=== PATIENT | male | born 1965 | race Caucasian/White ===

== ENCOUNTER 2018-03-02 13:11 | Outpatient (CLI) | payer OTHER ==
[2018-03-02 13:26] LABS: #Basophils 0.1 thou/uL (0.0-0.2); #Eosinphils 0.1 thou/uL (0.0-0.7); #Lymphocytes 2.6 thou/uL (1.20-3.40); #Monocytes 0.3 thou/uL (0.11-0.59); #Neutrophils 8.1 thou/uL (1.40-6.50); %Basophils 0.9 % (0.0-1.0); %Eosinophils 0.8 % (0.0-10.0); %Lymphocytes 23.4 % (21.0-51.0); %Monocytes 2.3 % (0.0-10.0); %Neutrophils 72.6 % (42.0-75.0); Hemoglobin 18.1 g/dL (14.0-18.0); Mean Corpuscular HGB CONC 34.3 g/dL (32.0-36.0); Mean Corpuscular Hemoglobin 28.7 pg (27.0-31.0); Mean Corpuscular Volume 83.6 fl (80.0-94.0); Platelet Count 272 thou/uL (130-400); RBC Distribution Width 11.9 % (11.5-14.5); Red Blood Cell (RBC) Count 6.31 mill/uL (4.70-6.10); White Blood Cell (WBC) Count 11.2 thou/uL (4.8-10.8)
[2018-03-02 13:36] LABS: Bilirubin Negative (Negative); Blood, Urine Negative (Negative); Clarity Clear (Clear); Glucose, Urine (Dipstick) 500 mg/dL (Negative); Leukocyte Negative (Negative); Nitrite Negative (Negative); Protein, Urine (Dipstick) 30 mg/dL (Neg-Trace); Urobilinogen 0.2 mg/dL (0.2-1.0); pH, Urine 5.5 (5.0-9.0)
[2018-03-02 13:49] LABS: ALT (SGPT) 25 U/L (8-55); AST (SGOT) 13 U/L (5-34); Albumin 4.7 g/dL (3.5-5.0); Alkaline Phosphatase 101 U/L (40-150); Anion Gap 14 mmol/L (10-20); BUN (Urea Nitrogen) 14 mg/dL (8.4-25.7); Bilirubin, Total 0.5 mg/dL (0.2-1.2); Calc. Creatinine Clearance 0 mL/min (70-130); Calcium 9.9 mg/dL (7.8-10.44); Carbon Dioxide 25 mmol/L (22-29); Cardiac Risk 6.1 (Less than 4.5); Chloride 100 mmol/L (98-107); Cholesterol 195 mg/dl (< 200 Desired); Estimated GFR-MDRD 73; Globulin 3.2 g/dL (2.4-3.5); Glucose 345 mg/dL (70-105); HDL Cholesterol 32 mg/dL (>60 Neg Risk); Potassium 4.2 mmol/L (3.5-5.1); Protein, Total 7.9 g/dL (6.0-8.3); Sodium 135 mmol/L (136-145); Triglycerides 468 mg/dL (Less than 150)
--- NOTE | 2018-03-02 13:49 | RAD ---
LEFT HIP 2 VIEWS: Date: 03/02/18 HISTORY: Left hip pain. FINDINGS/IMPRESSION: Mild degenerative changes are present. No fracture, dislocation, or bone destruction is identified. POS: [facility]
[2018-03-02 13:57] LABS: Bacteria/HPF Rare-Few HPF (None Seen); RBC/HPF None Seen HPF (0-3); Squamous Epithelial 0-3 HPF (0-3); WBC/HPF None Seen HPF (0-3)
== END 2018-03-02 13:12 | disposition home or self-care (01) ==
LOC: SCSRAD 13:11
PROVIDERS: ATTEND Family Medicine
DX: Z00.00 Encounter for general adult medical examination without abnormal findings (principal); E11.9 Type 2 diabetes mellitus without complications; M25.552 Pain in left hip; M16.12 Unilateral primary osteoarthritis, left hip
CPT/HCPCS: 36415; 80053; 80061; 81001; 83036; 85025

== ENCOUNTER 2018-04-10 06:59 | Inpatient (IN) | payer OTHER ==
[2018-04-10] MEDS ORDERED: Ondansetron HCl/PF 4 MG/2 ML Vial ONE (07:16)
[2018-04-10] MEDS ORDERED: Insulin Regular 300 UNITS/3 ML VIAL ONE (07:22)
[2018-04-10] MEDS ORDERED: Promethazine HCl 25 MG/ML VIAL ONE (07:42)
[2018-04-10 07:52] LABS: #Basophils 0.1 thou/uL (0.0-0.2); #Lymphocytes 1.8 thou/uL (1.20-3.40); #Monocytes 0.5 thou/uL (0.11-0.59); #Neutrophils 16.3 thou/uL (1.40-6.50); %Basophils 0.7 % (0.0-1.0); %Eosinophils 0.1 % (0.0-10.0); %Lymphocytes 9.6 % (21.0-51.0); %Monocytes 2.6 % (0.0-10.0); %Neutrophils 87.1 % (42.0-75.0); Hemoglobin 19.1 g/dL (14.0-18.0); Mean Corpuscular HGB CONC 34.9 g/dL (32.0-36.0); Mean Corpuscular Hemoglobin 30.1 pg (27.0-31.0); Mean Corpuscular Volume 86.2 fl (80.0-94.0); Mean Platelet Volume 7.8 fL (7.4-10.4); Platelet Count 324 thou/uL (130-400); RBC Distribution Width 11.8 % (11.5-14.5); Red Blood Cell (RBC) Count 6.36 mill/uL (4.70-6.10); White Blood Cell (WBC) Count 18.8 thou/uL (4.8-10.8)
[2018-04-10 07:52] LABS: Base Excess-Venous -7.1 mmol/L (0 (+/- 2.5)); Bicarbonate (HCO3v) 15.8 mmol/L (1.0-85.0); CO2 Tension (PvCO2) 26.7 mmHg (41.0-51.0); Hemoglobin - Calc 19.6 g/dL (12.0-18.0); Potassium 5.1 mmol/L (3.4-4.7); T. Carbon Dioxide 16.6 mmol/L (1.0-85.0); pH (Venous) 7.378 (7.35-7.45); vO2 Saturation-calc 75.2 % (94-98)
[2018-04-10 08:09] LABS: ALT (SGPT) 15 U/L (8-55); AST (SGOT) 13 U/L (5-34); Albumin 4.4 g/dL (3.5-5.0); Alkaline Phosphatase 94 U/L (40-150); Anion Gap 31 mmol/L (10-20); BUN (Urea Nitrogen) 22 mg/dL (8.4-25.7); Bilirubin, Total 0.8 mg/dL (0.2-1.2); Calc. Creatinine Clearance 0 mL/min (70-130); Calcium 10.2 mg/dL (7.8-10.44); Carbon Dioxide 14 mmol/L (22-29); Chloride 97 mmol/L (98-107); Estimated GFR-MDRD 54; Globulin 3.5 g/dL (2.4-3.5); Glucose 478 mg/dL (70-105); Lipase 23 U/L (8-78); Potassium 5.5 mmol/L (3.5-5.1); Protein, Total 7.9 g/dL (6.0-8.3); Sodium 136 mmol/L (136-145); Troponin I 0.012 ng/mL (< 0.028)
--- NOTE | 2018-04-10 09:22 | RAD ---
CHEST 1 VIEW: HISTORY: Hyperglycemia. Dyspnea. FINDINGS: No comparison. Cardiac silhouette is magnified by projection. Pulmonary vasculature unremarkable. Mediastinum midline with postoperative changes. No lobar consolidation or evidence of pneumothorax. IMPRESSION: No active cardiopulmonary abnormalities are demonstrated. POS: [facility]
[2018-04-10] MEDS ORDERED: Sodium Chloride 0.9% 1,000 ML IV SCH (11:19)
[2018-04-10] MEDS ORDERED: Ondansetron HCl/PF 4 MG/2 ML Vial IVP PRN (11:19)
[2018-04-10] MEDS ORDERED: Ondansetron ODT 4 MG TAB SL PRN (11:19)
[2018-04-10] MEDS ORDERED: HumaLOG 300 UNITS/3 ML VIAL SC PRN (11:19)
[2018-04-10 11:22] LABS: Bilirubin Negative (Negative); Blood, Urine Negative (Negative); Clarity Clear (Clear); Glucose, Urine (Dipstick) 500 mg/dL (Negative); Leukocyte Negative (Negative); Nitrite Negative (Negative); Protein, Urine (Dipstick) Trace mg/dL (Neg-Trace); Urobilinogen 0.2 mg/dL (0.2-1.0)
[2018-04-10 11:46] VITALS: BMI 27.9
[2018-04-10] MEDS ORDERED: hydrALAZINE 20 MG/ML VIAL SLOW IVP PRN (14:19)
[2018-04-10] MEDS ORDERED: Dextrose 50% Abboject 50 ML SYRINGE SLOW IVP PRN (14:19)
[2018-04-10] MEDS ORDERED: Dextrose 5% in Water 1,000 ML IV PRN (14:19)
[2018-04-10] MEDS ORDERED: cloNIDine 0.1 MG TAB PO PRN (14:19)
[2018-04-10] MEDS ORDERED: Acetaminophen 500 MG TAB PO PRN (14:19)
[2018-04-10] MEDS: Promethazine HCl 25 MG/ML VIAL IM/IV PRN (14:52)
[2018-04-10] MEDS ORDERED: Insulin Glargine 20 UNITS in Pre-Filled Syringe SC SCH (15:00)
[2018-04-10] MEDS ORDERED: Insulin Detemir 100 UNITS/ML 20 UNITS in Pre-Filled Syringe 1 EACH SC SCH ×2 (15:00→21:00)
[2018-04-10] MEDS: Sodium Chloride 0.9% 1,000 ML IV SCH ×3 (15:01→22:50)
--- NOTE | 2018-04-10 15:02 | HP ---
DATE OF ADMISSION: 04/10/2018 PRIMARY CARE PHYSICIAN: Dr. Lopez CHIEF COMPLAINT: Nausea, vomiting, and weakness. HISTORY OF PRESENT ILLNESS: This is a 52-year-old male who initially presented to [facility] Emergency Department complaining of nausea, vomiting, elevated blood glucose and dizzin ess. The patient states symptoms began approximately 72 hours prior to this evaluation without prodr omal symptoms. The patient admits to increased thirst, decreased oral intake, nausea, vomiting, and inability to take his regular diabetic medications. History is significant for diabetes mellitus typ e 2, insulin requiring, recently placed on long-acting Lantus. The patient states the long-acting in sulin was initiated approximately 2 months prior to this evaluation and states his glucose has been d ifficult to control. The patient also has a short-acting insulin and states this has more of an effe ct on his glucose than the long-acting preparation. The patient admits to a known history of diabete s mellitus since 1997 with varying amounts of control of his glucose. The patient denied any recent sick contacts, but had some general bodyaches and questionable low-grade temperature several days kael or to the initiation of his symptoms, 72 hours prior to this evaluation. The patient denies any rece nt travel history, dental procedures, surgical intervention, lower extremity wounds, dysuria or diarr hea. The patient admits to extreme thirst, decreased urination, general fatigue and malaise. In the emergency room, patient was noted with glucose greater than 400 and initiated on subcutaneous Humuli n R 10 units as well as 3 liters of normal saline, promethazine and Zofran. The patient states he paredes s some improvement in symptoms, but complains of persistent dizziness. Metabolic screening showed el evated beta hydroxybutyrate, but no specific evidence of acidosis on blood gas evaluation. PAST MEDICAL HISTORY: 1. Diabetes mellitus type 2 diagnosed in 1997, currently insulin requiring. 2. Question of hypertension. PAST SURGICAL HISTORY: Status post quadruple coronary artery bypass grafting. CURRENT MEDICATIONS: 1. Lantus 40 units subcutaneously daily. 2. Humalog 10 units t.i.d. with meals. Complete home medication list is pending. ALLERGIES: No known drug allergies. FAMILY HISTORY: Positive for diabetes mellitus. SOCIAL HISTORY: Resides in [place], [place]. No current alcohol, tobacco or illicit drug use. Functional of all activities of daily living. REVIEW OF SYSTEMS: The following complete review of systems was negative, unless otherwise mentioned in the HPI or below: Constitutional: Weight loss or gain, ability to conduct usual activities. Skin: Rash, itching. Eyes: Double vision, pain. ENT/Mouth: Nose bleeding, neck stiffness, pain, tenderness. Cardiovascular: Palpitations, dyspnea on exertion, orthopnea. Respiratory: Shortness of breath, wheezing, cough, hemoptysis, fever or night sweats. Gastrointestinal: Poor appetite, abdominal pain, heartburn, nausea, vomiting, constipation, or diarr hea. Genitourinary: Urgency, frequency, dysuria, nocturia. Musculoskeletal: Pain, swelling. Neurologic/Psychiatric: Anxiety, depression. Allergy/Immunologic: Skin rash, bleeding tendency. Otherwise negative except as stated per HPI. PHYSICAL EXAMINATION: VITAL SIGNS: On admission blood pressure 180/83, pulse 67, respiratory rate 18, temperature 97.4 deg yovany Fahrenheit, O2 saturation 97% on room air. GENERAL APPEARANCE: This is a 52-year-old male, alert and oriented x3, flushed in mild to moderate distress. HEENT: Pupils are equal, round, and reactive to light and accommodation. Extraocular muscles are in tact. Mild conjunctival injection bilaterally. Nares patent. OP is clear. Oral mucosa dry appeari ng. NECK: Supple, no cervical adenopathy, no thyromegaly, no carotid bruits, no JVD appreciated. Cervic al spine with full active and passive range of motion. No meningeal signs appreciated. CHEST: Lungs are clear to auscultation bilaterally. CARDIOVASCULAR: S1 and S2 without noted rub, murmur or gallop. ABDOMEN: Rounded, soft, nontender, nondistended. Bowel sounds are positive in all four quadrants. There is no hepatosplenomegaly, no abdominal bruits, no rebound or guarding appreciated. EXTREMITIES: Warm and dry with poor turgor. Pulses are palpable distally at the dorsalis pedis, pos terior tibial, and popliteal arteries bilaterally. Capillary refill less than 2 seconds. NEUROLOGIC: Cranial nerves II-XII are grossly intact. No focal or lateralizing signs appreciated. PERTINENT LABORATORY DATA AND X-RAY FINDINGS: Sodium 136, potassium 5.5, chloride 97, CO2 of 14, ani on gap of 31, BUN 22, creatinine 1.39, estimated GFR 54, glucose 478, calcium 10.2. LFTs within norm al limits. Albumin 4.4, lipase 23. CBC showed white blood cell count of 18.8, hemoglobin 19, hemato crit 55, platelet count 324 with 87% neutrophils. Venous blood gas dated 04/10/2018 showed pH of 7.3 8, pCO2 of 27, pO2 of 40. Urinalysis shows a specific gravity of 1.020, positive glucose and ketones . Beta hydroxybutyrate level 7.04 on 04/10/2018. Portable chest x-ray dated 04/10/2018 showed no ac tejon cardiopulmonary process. EKG dated 04/10/2018 by my interpretation shows a sinus mechanism with heart rate in the 80s. Normal R-wave progression noted in the precordial leads. Incomplete right bu ndle branch block pattern noted. Normal axis. No acute ST-T wave changes appreciated. ASSESSMENT AND PLAN: 1. Hyperglycemia. Suspect multifactorial in conjunction with poorly controlled diabetes mellitus ty pe 2. We will continue aggressive insulin sliding scale with Humalog. Serial Accu-Cheks q.2 hours. Start Levemir 20 units subcutaneously b.i.d. Check A1c level in the a.m. 2. Nausea and vomiting. Multifactorial including: A. Continue antiemetics with Phenergan 25 mg IV every 6 hours p.r.n. Intravenous normal saline at 2 50 mL per hour. Clear liquids as tolerated. 3. Dehydration, moderate to severe. Continue aggressive IV fluid hydration and monitor clinical res ponse. 4. Acute kidney injury. Avoid nephrotoxic agents and contrast media. Serial creatinine monitoring. 5. Hyperkalemia. Continue aggressive IV fluid hydration. Serial potassium monitoring. 6. Diabetes mellitus type 2, insulin requiring. Check A1c level in the a.m. Insulin sliding scale for reflexive coverage. Consider dietitian consult. 7. Prophylaxis. Sequential compression devices while in bed. Pepcid 20 mg IV q.12 hours. 8. Code status is FULL. Surrogate medical decision maker is patient's father.
[2018-04-10] MEDS: HumaLOG 300 UNITS/3 ML VIAL SC PRN ×2 (17:58→21:29)
[2018-04-10] MEDS: Famotidine/PF 20 mg/2ml Vial SLOW IVP SCH (21:11)
[2018-04-10] MEDS: Insulin Glargine 20 UNITS in Pre-Filled Syringe SC SCH (21:24)
[2018-04-11] MEDS: Sodium Chloride 0.9% 1,000 ML IV SCH ×4 (02:41→20:23)
[2018-04-11 04:22] LABS: Hemoglobin A1c 10.9 % (4.0-6.0)
[2018-04-11 04:37] LABS: ALT (SGPT) 11 U/L (8-55); AST (SGOT) 9 U/L (5-34); Albumin 3.3 g/dL (3.5-5.0); Alkaline Phosphatase 68 U/L (40-150); Anion Gap 12 mmol/L (10-20); BUN (Urea Nitrogen) 14 mg/dL (8.4-25.7); Bilirubin, Total 0.7 mg/dL (0.2-1.2); Calc. Creatinine Clearance 146 mL/min (70-130); Calcium 8.4 mg/dL (7.8-10.44); Carbon Dioxide 21 mmol/L (22-29); Chloride 106 mmol/L (98-107); Estimated GFR-MDRD Greater than 90; Globulin 2.3 g/dL (2.4-3.5); Glucose 188 mg/dL (70-105); Potassium 3.7 mmol/L (3.5-5.1); Protein, Total 5.6 g/dL (6.0-8.3); Sodium 135 mmol/L (136-145)
[2018-04-11 04:46] LABS: Band 1 % (5-11); Eosinophils 1 % (0-10); Lymphocytes 13 % (21-51); MDiff Complete? YES; Mean Corpuscular Hemoglobin 29.9 pg (27.0-31.0); Mean Platelet Volume 7.7 fL (7.4-10.4); Monocytes 6 % (0-10); Neutrophil 77 % (42-75); Platelet Count 279 thou/uL (130-400); RBC Distribution Width 12.3 % (11.5-14.5); Reactive Lymphocytes 2 % (0-10); Red Blood Cell (RBC) Count 5.34 mill/uL (4.70-6.10); White Blood Cell (WBC) Count 15.1 thou/uL (4.8-10.8)
[2018-04-11] MEDS: Famotidine/PF 20 mg/2ml Vial SLOW IVP SCH (09:33)
[2018-04-11] MEDS: Insulin Glargine 20 UNITS in Pre-Filled Syringe SC SCH ×2 (09:34→20:21)
[2018-04-11] MEDS: Promethazine HCl 25 MG/ML VIAL IM/IV PRN (11:15)
[2018-04-11] MEDS: HumaLOG 300 UNITS/3 ML VIAL SC PRN ×2 (11:55→17:53)
--- NOTE | 2018-04-11 15:34 | MRI ---
NONCONTRAST ENHANCED MRI IMAGES OF THE BRAIN: History: 62-year-old with dizziness, double vision. FINDINGS: Images demonstrate multiple areas of increased T2 signal in the right and left cerebellar hemispheres , more prominent on the right than the left. This is compatible with multiple areas of acute infarcti on in the cerebellum. A small right posterior medullary area of infarction also seen. Normal flow voids seen in the right and left vertebral artery and basilar as well as the CLAYTON and MCA vessels. Normal flow voids seen in the right and left internal carotid arteries. IMPRESSION: 1. Multiple acute PICA distribution areas of infarctions, more prominent on the right than on the lef t. 2. Small right posterior medullary area of acute infarction. Findings compatible with posterior circu lation distribution areas of infarction. Correlate with evaluation of possible cardiac source as well as vertebral sources for possible emboli. POS: [facility]
[2018-04-11] MEDS ORDERED: Aspirin 325 mg Enteric Coated Tablet PO SCH (16:15)
--- NOTE | 2018-04-11 17:20 | PDOC.PN ---
- Subjective Encounter Start Date: 04/11/18 Encounter Start Time: 13:00 Subjective: pt up in bed still complains of dizziness and double vision - Objective Resuscitation Status: Resuscitation Status FULL:Full Resuscitation Vital Signs & Weight: Vital Signs (12 hours) Temp Pulse Resp BP Pulse Ox 04/11/18 16:36 98.9 F 69 18 178/82 H 96 04/11/18 11:30 98.5 F 61 16 154/83 H 95 04/11/18 08:00 98.5 F 75 18 97 04/11/18 07:43 98.5 F 75 18 122/69 97 Weight Admit Weight 200 lb 3 oz Weight 200 lb 3 oz I&O: 04/10/18 04/11/18 04/12/18 06:59 06:59 06:59 Intake Total 3620 180 Balance 3620 180 Result Diagrams: 04/11/18 03:56 04/11/18 03:56 Additional Labs: Accuchecks 04/11/18 04/11/18 04/11/18 16:38 11:34 07:46 POC Glucose 170 H 189 H 164 H 04/11/18 04/10/18 04/10/18 02:51 23:43 20:40 POC Glucose 186 H 185 H 245 H 04/10/18 04/10/18 17:12 11:25 POC Glucose 315 H 333 H Phys Exam - Physical Examination HEENT: PERRLA, moist MMs, sclera anicteric, TM's clear, oral pharynx no lesions , 2+ tonsils Neck: no nodes, no JVD, supple, full ROM Respiratory: no wheezing, no rales, no rhonchi, wheezing present, clear to auscultation bilateral Cardiovascular: RRR, no significant murmur, no rub, gallop, irregular Gastrointestinal: soft, non-tender, no distention, positive bowel sounds Musculoskeletal: no edema, pulses present, edema present Neurological: non-focal finger to nose off on right and left, no pronater drift noted, did not walk patient Psychiatric: normal affect, A&O x 3 Skin: no rash, normal turgor, cap refill <2 seconds Dx/Plan - Plan 1) cerebellum stroke 2) diabetes type 2 3) CAD s/p cabg plan: MRI indicates multiple areas of stroke in his cerebellum, will consult neurology, echo, transfer pt to stroke unit and will monitor on tele. will also check her carotid. pt's hbg alc is 10 most likely pt is not compliant with his meds. He has had a bypass and states he is not on any meds. will start pt on asa /statin/lisinopril for now. * . Review of Systems - Review of Systems Eyes: negative: Pain, Vision Change, Conjunctivae Inflammation, Eyelid Inflammation, Redness, Other ENT: negative: Ear Pain, Ear Discharge, Nose Pain, Nose Discharge, Nose Congestion, Mouth Pain, Mouth Swelling, Throat Pain, Throat Swelling, Other Respiratory: negative: Cough, Dry, Shortness of Breath, Hemoptysis, SOB with Excertion, Pleuritic Pain, Sputum, Wheezing Cardiovascular: negative: chest pain, palpitations, orthopnea, paroxysmal nocturnal dyspnea, edema, light headedness, other Gastrointestinal: negative: Nausea, Vomiting, Abdominal Pain, Diarrhea, Constipation, Melena, Hematochezia, Other Neurological: Other (double vision) - Medications/Allergies Allergies/Adverse Reactions: Allergies Allergy/AdvReac Type Severity Reaction Status Date / Time No Known Allergies Allergy Unverified 04/10/18 11:18 Medications: Current Medications Acetaminophen (Tylenol) 1,000 mg PO Q6H PRN PRN Reason: Headache/Fever or Mild Pain Aspirin (Ecotrin) 325 mg PO DAILY ON LICENSE OF [facility] Aspirin (Ecotrin) 325 mg PO NOW ON LICENSE OF [facility] Stop: 04/11/18 18:15 Atorvastatin Calcium (Lipitor) 40 mg PO HS ON LICENSE OF [facility] Clonidine (Catapres) 0.1 mg PO Q4H PRN PRN Reason: Systolic BP > 180 Dextrose/Water (Dextrose 50%) 25 gm SLOW IVP PRN PRN PRN Reason: Hypoglycemia Enoxaparin Sodium (Lovenox) 40 mg SC 0900 ON LICENSE OF [facility] Famotidine (Pepcid) 20 mg SLOW IVP Q12HR ON LICENSE OF [facility] Last Admin: 04/11/18 09:33 Dose: 20 mg Glucagon (Glucagon) 1 mg IM PRN PRN PRN Reason: Hypoglycemia Hydralazine HCl (Apresoline) 10 mg SLOW IVP Q4H PRN PRN Reason: Systolic BP > 180 Dextrose/Water (D5w) 1,000 mls @ 0 mls/hr IV .Q0M PRN; As Directed PRN Reason: Hypoglycemia Sodium Chloride (Normal Saline 0.9%) 1,000 mls @ 50 mls/hr IV .Q20H [facility] Last Admin: 04/11/18 11:11 Dose: 1,000 mls Insulin Glargine 20 units/ (Miscellaneous Medication) 0.2 mls @ 0 mls/hr SC BID [facility] Last Admin: 04/11/18 09:34 Dose: 0.2 mls Insulin Human Lispro (Humalog) 0 units SC .AGGRESSIVE SLIDING PRN PRN Reason: Aggressive Correctional Scale Last Admin: 04/11/18 11:55 Dose: 3 unit Insulin Human Lispro (Humalog) 0 units SC .BEDTIME SLIDING SC PRN PRN Reason: Bedtime Correctional Scale Last Admin: 04/10/18 21:29 Dose: 2 unit Lisinopril (Zestril) 10 mg PO DAILY ON LICENSE OF [facility] Promethazine HCl (Phenergan) 25 mg IM/IV Q6H PRN PRN Reason: Nausea/Vomiting Last Admin: 04/11/18 11:15 Dose: 25 mg Sodium Chloride (Flush - Normal Saline) 10 ml IVF Q12HR ON LICENSE OF [facility] Sodium Chloride (Flush - Normal Saline) 10 ml IVF PRN PRN PRN Reason: Saline Flush
[2018-04-11] MEDS: Famotidine 20 MG TAB PO SCH (20:20)
--- NOTE | 2018-04-11 20:42 | CON ---
DATE OF CONSULTATION: 04/11/2018 CONSULTING PHYSICIAN: Hospitalist Service. IMPRESSION: 1. Posterior circulation infarcts suggesting the possibility of an embolic event. 2. Diabetes. 3. History of heart disease. 4. Aspirin failure. PLAN: 1. Add Plavix. 2. Carotid ultrasound. 3. Echocardiogram. 4. Zofran for nausea. Mr. Moraes is a 52-year-old man who awoke with acute onset of vertigo. This has been associated wit h some nausea and vomiting. There has been some minimal headache. He denies any difficulty swallowi ng. He has some perioral numbness. He has not noticed any lateralized weakness or numbness of the e xtremities. He came in for further evaluation. His MRI of the brain revealed areas of infarction in volving both occipital regions as well as the medulla. His labwork otherwise was unremarkable other than his hyperglycemia. He denies any tobacco use. PAST MEDICAL HISTORY: As listed above. ALLERGIES: None reported. SOCIAL HISTORY: Unremarkable. FAMILY HISTORY: Unremarkable. REVIEW OF SYSTEMS: Otherwise, negative for any chest pain or shortness of breath. PHYSICAL EXAMINATION: GENERAL: He is a reasonably healthy appearing middle-aged man, lying in bed in minimal distress. HEENT: Pupils equal and reactive. Conjunctivae clear. Oropharynx clear. NECK: Supple. EXTREMITIES: No cyanosis, clubbing or edema. NEUROLOGIC: He was alert and cooperative. His speech is fluent and clear. Cranial nerve exam was n otable for upbeating nystagmus which was worse in right gaze. His facial sensation was subjectively decreased on the left as compared to the right. Motor exam showed good antigravity strength in all e xtremities. Cerebellar testing showed dysmetria with [id number] testing on the right. Plantar r esponses were downgoing. Gait was not tested. SUMMARY: A middle-aged man with acute onset of vertigo, vision distortion some dysmetria on the righ t with findings of multiple areas of infarct on his MRI. We will add Plavix and continue his workup.
[2018-04-11] MEDS ORDERED: Atorvastatin Calcium 40 MG TAB PO SCH (21:00)
[2018-04-12] MEDS: Promethazine HCl 25 MG/ML VIAL IM/IV PRN (08:21)
[2018-04-12 09:00] LABS: Cardiac Risk 4.7 (Less than 4.5)
[2018-04-12] MEDS: Famotidine 20 MG TAB PO SCH ×2 (09:49→22:19)
[2018-04-12] MEDS: Lisinopril 10 MG TAB PO SCH (09:49)
[2018-04-12] MEDS: Aspirin 325 mg Enteric Coated Tablet PO SCH (09:50)
[2018-04-12] MEDS: Clopidogrel Bisulfate 75 MG TAB PO SCH (09:50)
[2018-04-12] MEDS: Enoxaparin Sodium 40 MG/0.4 ML SYRINGE SC SCH (10:04)
[2018-04-12] MEDS: Sodium Chloride 0.9% 1,000 ML IV SCH (10:04)
[2018-04-12] MEDS: Insulin Glargine 20 UNITS in Pre-Filled Syringe SC SCH ×2 (10:04→22:19)
[2018-04-12] MEDS: HumaLOG 300 UNITS/3 ML VIAL SC PRN ×2 (11:55→17:00)
--- NOTE | 2018-04-12 12:04 | CT ---
CTA HEAD UTILIZING IV CONTRAST AND 3D REFORMATTED IMAGING: CTA NECK UTILIZING IV CONTRAST AND 3D REFORMATTED IMAGING: INDICATION: History of acute infarctions involving the PICA distribution of the brain. There are multiple cerebe llar and the medulla oblongata infarction. FINDINGS: NECK: There is emphysematous change involving both lung apices. There is partial visualized of post CABG change. There are mild vascular calcifications involving the aortic arch. There is a bovine a rch configuration. The brachiocephalic artery appears widely patent. The right subclavian artery ap pears widely patent. The right common carotid artery is widely patent. The right carotid bulb appea rs patent. The cervical ICA on the right appears patent. The left common carotid artery origin and course is widely patent. The left carotid bulb demonstrate s some mild vascular calcifications but appears patent. The cervical course of the left ICA is fully patent. The right vertebral artery course is fully patent throughout the cervical region. The left vertebral artery origin and course is fully patent throughout the cervical region. The left subclavian artery is fully patent. The thyroid, submandibular, and parotid glands appear widely patent. The visualized aerodigestive tr act appears within normal limits. There is some mild scattered change of the cervical spine. No acute osseous abnormality is evident. HEAD: No hemodynamically significant stenosis, occlusion, or aneurysmal formation is evident involvi ng the great vessels of the brain. There are subacute infarctions involving the cerebellar hemispher es bilaterally, as well as the right posterolateral aspect of the medulla. No abnormal region of enh ancement is demonstrated. The skull is intact. IMPRESSION: 1. No hemodynamically significant stenosis seen involving the major neck arterial structures. 2. No hemodynamically significant stenosis, occlusion, or aneurysmal formation seen involving the in tracranial arterial structures. 3. Bilateral cerebellar hemisphere and right posterolateral medulla oblongata subacute infarcts. POS: [facility]
[2018-04-12] MEDS ORDERED: Iopamidol 370 76% 100 ML VIAL ONE (13:05)
--- NOTE | 2018-04-12 14:13 | PDOC.PN ---
- Objective Resuscitation Status: Resuscitation Status FULL:Full Resuscitation Vital Signs & Weight: Vital Signs (12 hours) Temp Pulse Resp BP Pulse Ox 04/12/18 12:15 98.4 F 82 18 190/96 H 99 04/12/18 08:00 98.1 F 67 16 181/86 H 96 04/12/18 03:42 98.0 F 68 20 148/86 H 95 Weight Admit Weight 200 lb 3 oz Weight 200 lb 3 oz I&O: 04/11/18 04/12/18 04/13/18 06:59 06:59 06:59 Intake Total 3620 620 Output Total 400 Balance 3620 220 Result Diagrams: 04/11/18 03:56 04/11/18 03:56 Additional Labs: Accuchecks 04/12/18 04/12/18 04/11/18 11:50 04:51 19:57 POC Glucose 278 H 157 H 181 H 04/11/18 16:38 POC Glucose 170 H Phys Exam - Physical Examination HEENT: PERRLA, moist MMs, sclera anicteric, TM's clear, oral pharynx no lesions , 2+ tonsils Neck: no nodes, no JVD, supple, full ROM Respiratory: no wheezing, no rales, no rhonchi, wheezing present, clear to auscultation bilateral Cardiovascular: RRR, no significant murmur, no rub, gallop, irregular Gastrointestinal: soft, non-tender, no distention, positive bowel sounds Musculoskeletal: no edema, pulses present, edema present right hand finger to nose is off, pt's gait is unsteady, 5/5 upper lower ext Dx/Plan - Plan 1) cerebellum stroke 2) diabetes type 2 3) CAD s/p cabg plan: MRI indicates multiple areas of stroke in his cerebellum, will consult neurology, echo, transfer pt to stroke unit and will monitor on tele. will also check her carotid. pt's hbg alc is 10 most likely pt is not compliant with his meds. He has had a bypass and states he is not on any meds. will start pt on asa /statin/lisinopril for now. 04/12 plavix added, will get cta neck and head. will consult cardiology for TONY. pt evaluated pt, will need inpatient rehab. * . Review of Systems - Review of Systems Eyes: negative: Pain, Vision Change, Conjunctivae Inflammation, Eyelid Inflammation, Redness, Other ENT: negative: Ear Pain, Ear Discharge, Nose Pain, Nose Discharge, Nose Congestion, Mouth Pain, Mouth Swelling, Throat Pain, Throat Swelling, Other Respiratory: negative: Cough, Dry, Shortness of Breath, Hemoptysis, SOB with Excertion, Pleuritic Pain, Sputum, Wheezing Cardiovascular: negative: chest pain, palpitations, orthopnea, paroxysmal nocturnal dyspnea, edema, light headedness, other Gastrointestinal: negative: Nausea, Vomiting, Abdominal Pain, Diarrhea, Constipation, Melena, Hematochezia, Other Genitourinary: negative: Dysuria, Frequency, Incontinence, Hematuria, Retention , Other Musculoskeletal: negative: Neck Pain, Shoulder Pain, Arm Pain, Back Pain, Hand Pain, Leg Pain, Foot Pain, Other Other: double vision - Medications/Allergies Allergies/Adverse Reactions: Allergies Allergy/AdvReac Type Severity Reaction Status Date / Time No Known Allergies Allergy Unverified 04/10/18 11:18 Medications: Current Medications Acetaminophen (Tylenol) 1,000 mg PO Q6H PRN PRN Reason: Headache/Fever or Mild Pain Last Admin: 04/11/18 23:07 Dose: 1,000 mg Aspirin (Ecotrin) 325 mg PO DAILY [facility] Last Admin: 04/12/18 09:50 Dose: 325 mg Atorvastatin Calcium (Lipitor) 40 mg PO HS [facility] Last Admin: 04/11/18 20:20 Dose: 40 mg Clonidine (Catapres) 0.1 mg PO Q4H PRN PRN Reason: Systolic BP > 180 Last Admin: 04/12/18 12:09 Dose: 0.1 mg Clopidogrel Bisulfate (Plavix) 75 mg PO DAILY [facility] Last Admin: 04/12/18 09:50 Dose: 75 mg Dextrose/Water (Dextrose 50%) 25 gm SLOW IVP PRN PRN PRN Reason: Hypoglycemia Enoxaparin Sodium (Lovenox) 40 mg SC 0900 [facility] Last Admin: 04/12/18 10:04 Dose: 40 mg Famotidine (Pepcid) 20 mg PO BID [facility] Last Admin: 04/12/18 09:49 Dose: 20 mg Glucagon (Glucagon) 1 mg IM PRN PRN PRN Reason: Hypoglycemia Hydralazine HCl (Apresoline) 10 mg SLOW IVP Q4H PRN PRN Reason: Systolic BP > 180 Dextrose/Water (D5w) 1,000 mls @ 0 mls/hr IV .Q0M PRN; As Directed PRN Reason: Hypoglycemia Sodium Chloride (Normal Saline 0.9%) 1,000 mls @ 50 mls/hr IV .Q20H [facility] Last Admin: 04/12/18 10:04 Dose: 1,000 mls Insulin Glargine 20 units/ (Miscellaneous Medication) 0.2 mls @ 0 mls/hr SC BID [facility] Last Admin: 04/12/18 10:04 Dose: 0.2 mls Insulin Human Lispro (Humalog) 0 units SC .AGGRESSIVE SLIDING PRN PRN Reason: Aggressive Correctional Scale Last Admin: 04/12/18 11:55 Dose: 10 unit Insulin Human Lispro (Humalog) 0 units SC .BEDTIME SLIDING SC PRN PRN Reason: Bedtime Correctional Scale Last Admin: 04/10/18 21:29 Dose: 2 unit Lisinopril (Zestril) 10 mg PO DAILY [facility] Last Admin: 04/12/18 09:49 Dose: 10 mg Promethazine HCl (Phenergan) 25 mg IM/IV Q6H PRN PRN Reason: Nausea/Vomiting Last Admin: 04/12/18 08:21 Dose: 25 mg Sodium Chloride (Flush - Normal Saline) 10 ml IVF Q12HR [facility] Last Admin: 04/12/18 10:04 Dose: 10 ml Sodium Chloride (Flush - Normal Saline) 10 ml IVF PRN PRN PRN Reason: Saline Flush
[2018-04-12 17:24] LABS: Amphetamine Not Detected (NotDetected); Barbiturates Screen Not Detected (NotDetected); Benzodiazepine Screen Not Detected (NotDetected); Cocaine Metabolite Screen Not Detected (NotDetected); Medtox Control Line Valid? VALID (VALID); Medtox Reader # READER 4; Methadone Not Detected (NotDetected); Methamphetamine Not Detected (NotDetected); Opiate Screen Not Detected (NotDetected); Oxycodone Screen Not Detected (NotDetected); Phencyclidine (PCP) Not Detected (NotDetected); THC/Cannabinoid Screen Detected (NotDetected); Tricyclic Screen Not Detected (NotDetected)
--- NOTE | 2018-04-12 18:16 | CON ---
DATE OF CONSULTATION: 04/12/2018 HISTORY OF PRESENT ILLNESS: Anshu Moraes is a 52-year-old white male with previous history of myocardial infarction and CABG. On 04/08/2018, he began to have onset of intense nausea, vomiting, and a spinning feeling. Ultimately he went to the emergency room on 04/10/2018 at [facility]. He was given numerous doses of Phenergan and transferred. He denied any chest discomfort or shortness of breath. He does take aspirin 81 mg at home. He has had an MRI, which revealed multiple acute areas of infarction, more prominent in the right than the left. It is felt that this may have been embolic in nature. Cardiology consultation was requested for possible transesophageal echo. PAST MEDICAL HISTORY: Remarkable for myocardial infarction approximately 5 years ago. He states he had 3 stents placed while living in [place]. One year later, this apparently restenosed and he underwent CABG x4. He denies any chest discomfort or shortness of breath since his CABG. He denies any history of any arrhythmias with any of his cardiac problems. MEDICATIONS: Duloxetine 30 mg b.i.d., lisinopril 5 daily, atorvastatin 10 mg daily, and aspirin 81 mg daily. ALLERGIES: None. OPERATIONS: CABG. SOCIAL HISTORY: Smoked 2-1/2 packs per day for 30 years, but stopped at the time of his myocardial infarction. He continues to use E-cigarettes. He occasionally has alcohol. 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 FAMILY HISTORY: Mother had mitral valve replacement; however, does not sound as if anybody has had coronary artery disease in the immediate family. REVIEW OF SYSTEMS: Twelve point review of systems unremarkable except as noted above. PHYSICAL EXAMINATION: VITAL SIGNS: Blood pressure 190/96, pulse of 82. HEENT: PERRL. NECK: Supple. CHEST: Clear. CARDIAC: S1, S2 normal, without any S3, S4 or murmurs. Carotid upstroke is normal without bruits. ABDOMEN: Normal bowel sounds without tenderness, organomegaly or masses. EXTREMITIES: Revealed no clubbing, cyanosis or edema. NEUROLOGIC: Grossly intact. SKIN: Warm and dry. LABORATORY DATA: I do not see an EKG on the chart, one will be ordered. MRI findings as noted above. CT angiogram of the head reveals no significant stenosis of the major neck arteries and no significant intracranial abnormalities or aneurysmal formation. There are bilateral cerebellar hemisphere and right posterolateral medulla oblongata subacute infarcts. Hemoglobin 16.0, hematocrit 47.0. White count 15,100, platelets 279,000. Cholesterol 127, triglycerides 126, HDL 27, LDL 75. Sodium 135, potassium 3.7, chloride 106, carbon dioxide 21, BUN 14, creatinine 0.76. Liver function tests are normal. Cardiac enzymes, one set is normal. IMPRESSION: 1. Cerebellar infarction with intense nausea, vomiting, or vertigo. 2. Coronary artery disease, status post myocardial infarction followed by placement of 3 stents while living in [place]. One year later, he apparently had restenosis, underwent CABG x4 also in [place]. 3. Hypertension. 4. Diabetes. 5. Hyperlipidemia. 6. Former smoker, although he continues to use E-cigarettes. PLAN: Transesophageal echo will be arranged. Also, a transthoracic echo will be performed. EKG will be ordered. His LDL was 75 and I will increase his atorvastatin up to 20 mg daily from the 10 mg a day that he is taking at home. MTDD
[2018-04-12] MEDS ORDERED: Ondansetron ODT 8 MG TAB PO PRN (21:55)
[2018-04-12] MEDS: Atorvastatin Calcium 20 MG TAB PO SCH (22:18)
[2018-04-13] MEDS: HumaLOG 300 UNITS/3 ML VIAL SC PRN ×2 (05:34→17:28)
[2018-04-13] MEDS: Famotidine 20 MG TAB PO SCH ×2 (08:34→21:29)
[2018-04-13] MEDS: Clopidogrel Bisulfate 75 MG TAB PO SCH ×2 (08:34→08:36)
[2018-04-13] MEDS: Lisinopril 10 MG TAB PO SCH ×2 (08:34→08:36)
[2018-04-13] MEDS: Enoxaparin Sodium 40 MG/0.4 ML SYRINGE SC SCH (08:37)
[2018-04-13] MEDS: Aspirin 325 mg Enteric Coated Tablet PO SCH (08:37)
[2018-04-13] MEDS: Meclizine HCl 12.5 MG TAB PO PRN ×2 (08:39→21:29)
[2018-04-13] MEDS: HumaLOG 300 UNITS/3 ML VIAL SC SCH ×3 (09:33→21:29)
[2018-04-13] MEDS: Insulin Glargine 25 UNITS in Pre-Filled Syringe 1 EACH SC SCH ×2 (09:34→21:29)
[2018-04-13] MEDS ORDERED: PROPOFOL 200 MG/20 ML VIAL ONE (09:53)
[2018-04-13] MEDS: Sodium Chloride 0.9% 1,000 ML IV SCH (11:56)
--- NOTE | 2018-04-13 14:01 | PDOC.PN ---
- Subjective Encounter Start Date: 04/13/18 Encounter Start Time: 10:30 Subjective: pt up in bed still has double vision - Objective Resuscitation Status: Resuscitation Status FULL:Full Resuscitation Vital Signs & Weight: Vital Signs (12 hours) Temp Pulse Pulse Pulse Resp BP BP 04/13/18 11:49 97.8 F 71 16 04/13/18 11:13 79 75 175/97 H 04/13/18 08:36 136/82 04/13/18 08:34 136/82 04/13/18 08:00 98.3 F 84 16 04/13/18 03:25 98.1 F 71 16 BP BP Pulse Ox 04/13/18 11:49 175/97 H 97 04/13/18 11:13 133/81 04/13/18 08:36 04/13/18 08:34 04/13/18 08:00 136/82 97 04/13/18 03:25 144/82 H 97 Weight Admit Weight 200 lb 3 oz Weight 200 lb 3 oz I&O: 04/12/18 04/13/18 04/14/18 06:59 06:59 06:59 Intake Total 620 450 Output Total 400 1145 Balance 220 -695 Result Diagrams: 04/11/18 03:56 04/11/18 03:56 Additional Labs: Accuchecks 04/13/18 04/13/18 04/12/18 11:58 05:33 21:23 POC Glucose 149 H 268 H 290 H 04/12/18 16:52 POC Glucose 237 H Phys Exam - Physical Examination HEENT: PERRLA, moist MMs, sclera anicteric, TM's clear, oral pharynx no lesions , 2+ tonsils Neck: no nodes, no JVD, supple, full ROM Respiratory: no wheezing, no rales, no rhonchi, wheezing present, clear to auscultation bilateral Cardiovascular: RRR, no significant murmur, no rub, gallop, irregular Gastrointestinal: soft, non-tender, no distention, positive bowel sounds finger to nose of the right hand is off, unsteady gait Dx/Plan - Plan 1) cerebellum stroke 2) diabetes type 2 3) CAD s/p cabg 4) htn plan: MRI indicates multiple areas of stroke in his cerebellum, will consult neurology, echo, transfer pt to stroke unit and will monitor on tele. will also check her carotid. pt's hbg alc is 10 most likely pt is not compliant with his meds. He has had a bypass and states he is not on any meds. will start pt on asa /statin/lisinopril for now. 04/12 plavix added, will get cta neck and head. will consult cardiology for TONY. pt evaluated pt, will need inpatient rehab. 04/13 insulin dose adjusted, tid insulin added. will also increase pt's lisinopril to 20mg bid. spoke with Dr Gaxiola about pt's double vision. Recommended eye patch and his double vision will improve. pt had TONY today per nursing staff normal. will wait for official report. * . * . Review of Systems - Review of Systems Eyes: negative: Pain, Vision Change, Conjunctivae Inflammation, Eyelid Inflammation, Redness, Other ENT: negative: Ear Pain, Ear Discharge, Nose Pain, Nose Discharge, Nose Congestion, Mouth Pain, Mouth Swelling, Throat Pain, Throat Swelling, Other Respiratory: negative: Cough, Dry, Shortness of Breath, Hemoptysis, SOB with Excertion, Pleuritic Pain, Sputum, Wheezing Cardiovascular: negative: chest pain, palpitations, orthopnea, paroxysmal nocturnal dyspnea, edema, light headedness, other Gastrointestinal: negative: Nausea, Vomiting, Abdominal Pain, Diarrhea, Constipation, Melena, Hematochezia, Other Genitourinary: negative: Dysuria, Frequency, Incontinence, Hematuria, Retention , Other - Medications/Allergies Allergies/Adverse Reactions: Allergies Allergy/AdvReac Type Severity Reaction Status Date / Time No Known Allergies Allergy Unverified 04/10/18 11:18 Medications: Current Medications Acetaminophen (Tylenol) 1,000 mg PO Q6H PRN PRN Reason: Headache/Fever or Mild Pain Last Admin: 04/11/18 23:07 Dose: 1,000 mg Aspirin (Ecotrin) 325 mg PO DAILY [facility] Last Admin: 04/13/18 08:37 Dose: Not Given Atorvastatin Calcium (Lipitor) 20 mg PO HS [facility] Last Admin: 04/12/18 22:18 Dose: 20 mg Clonidine (Catapres) 0.1 mg PO Q4H PRN PRN Reason: Systolic BP > 180 Last Admin: 04/12/18 12:09 Dose: 0.1 mg Clopidogrel Bisulfate (Plavix) 75 mg PO DAILY [facility] Last Admin: 04/13/18 08:36 Dose: Not Given Dextrose/Water (Dextrose 50%) 25 gm SLOW IVP PRN PRN PRN Reason: Hypoglycemia Enoxaparin Sodium (Lovenox) 40 mg SC 0900 [facility] Last Admin: 04/13/18 08:37 Dose: Not Given Famotidine (Pepcid) 20 mg PO BID [facility] Last Admin: 04/13/18 08:34 Dose: 20 mg Glucagon (Glucagon) 1 mg IM PRN PRN PRN Reason: Hypoglycemia Hydralazine HCl (Apresoline) 10 mg SLOW IVP Q4H PRN PRN Reason: Systolic BP > 180 Dextrose/Water (D5w) 1,000 mls @ 0 mls/hr IV .Q0M PRN; As Directed PRN Reason: Hypoglycemia Sodium Chloride (Normal Saline 0.9%) 1,000 mls @ 50 mls/hr IV .Q20H [facility] Last Admin: 04/13/18 11:56 Dose: 1,000 mls Insulin Glargine 25 units/ (Miscellaneous Medication) 0.25 mls @ 0 mls/hr SC BID [facility] Last Admin: 04/13/18 09:34 Dose: Not Given Insulin Human Lispro (Humalog) 0 units SC .AGGRESSIVE SLIDING PRN PRN Reason: Aggressive Correctional Scale Last Admin: 04/13/18 05:34 Dose: 9 unit Insulin Human Lispro (Humalog) 0 units SC .BEDTIME SLIDING SC PRN PRN Reason: Bedtime Correctional Scale Last Admin: 04/10/18 21:29 Dose: 2 unit Insulin Human Lispro (Humalog) 6 units SC TID [facility] Last Admin: 04/13/18 09:33 Dose: Not Given Lisinopril (Zestril) 20 mg PO BID [facility] Meclizine HCl (Antivert) 12.5 mg PO Q6H PRN PRN Reason: Dizziness Last Admin: 04/13/18 08:39 Dose: 12.5 mg Ondansetron HCl (Zofran Odt) 8 mg PO Q4H PRN PRN Reason: Nausea/Vomiting Promethazine HCl (Phenergan) 25 mg IM/IV Q6H PRN PRN Reason: Nausea/Vomiting Last Admin: 04/12/18 08:21 Dose: 25 mg Sodium Chloride (Flush - Normal Saline) 10 ml IVF Q12HR [facility] Last Admin: 04/13/18 12:00 Dose: Not Given Sodium Chloride (Flush - Normal Saline) 10 ml IVF PRN PRN PRN Reason: Saline Flush
--- NOTE | 2018-04-13 19:48 | ECHO ---
This is a 52-year-old gentleman with a CVA. The patient taken to the PACU, the patient was sedated b y anesthesiology. Transesophageal probe was placed in the distally esophagus and stomach. Echocardiog mary alice were obtained. Contrast bubble exam was performed. A transesophageal probe was removed. FINDINGS: 1. Normal left ventricular systolic function. 2. Normal mitral and aortic valves. 3. Mild tricuspid regurgitation. 4. No PFO was noted by color Doppler or contrast bubble: 5. No thrombus is noted in the left atrium or left atrial appendage. IMPRESSION: No PFO was noted. CC: Sanjay Viveros M.D.
[2018-04-13] MEDS: Atorvastatin Calcium 20 MG TAB PO SCH (21:29)
[2018-04-13] MEDS: Lisinopril 20 MG TAB PO SCH (21:30)
[2018-04-14] MEDS: Sodium Chloride 0.9% 1,000 ML IV SCH ×2 (06:12→21:45)
[2018-04-14] MEDS: HumaLOG 300 UNITS/3 ML VIAL SC PRN ×3 (06:13→17:06)
[2018-04-14 06:38] LABS: Anion Gap 12 mmol/L (10-20); BUN (Urea Nitrogen) 10 mg/dL (8.4-25.7); Calc. Creatinine Clearance 135 mL/min (70-130); Carbon Dioxide 24 mmol/L (22-29); Chloride 103 mmol/L (98-107); Estimated GFR-MDRD Greater than 90; Glucose 221 mg/dL (70-105); Potassium 3.6 mmol/L (3.5-5.1); Sodium 135 mmol/L (136-145)
[2018-04-14] MEDS: Clopidogrel Bisulfate 75 MG TAB PO SCH (08:27)
[2018-04-14 08:31] LABS: Band 9 % (5-11); Hemoglobin 16.5 g/dL (14.0-18.0); Lymphocytes 33 % (21-51); MDiff Complete? YES; Mean Corpuscular HGB CONC 34.1 g/dL (32.0-36.0); Mean Corpuscular Hemoglobin 29.8 pg (27.0-31.0); Mean Corpuscular Volume 87.4 fl (80.0-94.0); Mean Platelet Volume 7.9 fL (7.4-10.4); Monocytes 1 % (0-10); Neutrophil 52 % (42-75); Platelet Count 257 thou/uL (130-400); RBC Distribution Width 12.1 % (11.5-14.5); RBC Morphology Normal; Reactive Lymphocytes 3 % (0-10); Red Blood Cell (RBC) Count 5.53 mill/uL (4.70-6.10); White Blood Cell (WBC) Count 11.2 thou/uL (4.8-10.8)
[2018-04-14] MEDS: Aspirin 325 mg Enteric Coated Tablet PO SCH (08:31)
[2018-04-14] MEDS: Lisinopril 20 MG TAB PO SCH ×2 (08:32→21:41)
[2018-04-14] MEDS: Famotidine 20 MG TAB PO SCH ×2 (08:35→21:41)
[2018-04-14] MEDS: Insulin Glargine 25 UNITS in Pre-Filled Syringe 1 EACH SC SCH (08:37)
[2018-04-14] MEDS: Enoxaparin Sodium 40 MG/0.4 ML SYRINGE SC SCH (08:37)
[2018-04-14] MEDS: HumaLOG 300 UNITS/3 ML VIAL SC SCH ×3 (08:38→21:43)
--- NOTE | 2018-04-14 13:46 | PDOC.PN ---
- Subjective Encounter Start Date: 04/14/18 Encounter Start Time: 14:46 Subjective: pt up in bed no complains - Objective Resuscitation Status: Resuscitation Status FULL:Full Resuscitation Vital Signs & Weight: Vital Signs (12 hours) Temp Pulse Pulse Pulse Resp BP BP 04/14/18 11:31 98.5 F 96 20 04/14/18 10:25 118 H 112 H 149/99 H 04/14/18 08:40 98.4 F 82 16 04/14/18 08:32 167/89 H 04/14/18 08:00 98.4 F 82 16 04/14/18 07:31 83 82 178/96 H 04/14/18 04:01 98.5 F 72 16 BP BP Pulse Ox 04/14/18 11:31 149/99 H 98 04/14/18 10:25 134/85 04/14/18 08:40 97 04/14/18 08:32 04/14/18 08:00 167/89 H 97 04/14/18 07:31 178/100 H 04/14/18 04:01 166/80 H 94 L Weight Admit Weight 200 lb 3 oz Weight 200 lb 3 oz I&O: 04/13/18 04/14/18 04/15/18 06:59 06:59 06:59 Intake Total 450 Output Total 7557 275 574 [facility]695 -275 -575 Result Diagrams: 04/14/18 05:41 04/14/18 05:41 Additional Labs: Accuchecks 04/14/18 04/14/18 04/13/18 11:01 06:13 21:01 POC Glucose 226 H 206 H 177 H 04/13/18 04/13/18 15:35 13:52 POC Glucose 272 H 264 H Phys Exam - Physical Examination HEENT: PERRLA, moist MMs, sclera anicteric, TM's clear, oral pharynx no lesions , 2+ tonsils Neck: no nodes, no JVD, supple, full ROM Respiratory: no wheezing, no rales, no rhonchi, wheezing present, clear to auscultation bilateral Cardiovascular: RRR, no significant murmur, no rub, gallop, irregular Gastrointestinal: soft, non-tender, no distention, positive bowel sounds Musculoskeletal: no edema, pulses present, edema present pt still has some ataxia and has right side finger to nose impairment. visual defects Dx/Plan - Plan 1) cerebellum stroke 2) diabetes type 2 3) CAD s/p cabg 4) htn plan: MRI indicates multiple areas of stroke in his cerebellum, will consult neurology, echo, transfer pt to stroke unit and will monitor on tele. will also check her carotid. pt's hbg alc is 10 most likely pt is not compliant with his meds. He has had a bypass and states he is not on any meds. will start pt on asa /statin/lisinopril for now. 04/12 plavix added, will get cta neck and head. will consult cardiology for TONY. pt evaluated pt, will need inpatient rehab. 04/13 insulin dose adjusted, tid insulin added. will also increase pt's lisinopril to 20mg bid. spoke with Dr Gaxiola about pt's double vision. Recommended eye patch and his double vision will improve. pt had TONY today per nursing staff normal. will wait for official report. 04/14 pt waiting to be discharged to inpatient. waiting for insurance auth. lantus dose adjusted today. norvasc added / / * . Review of Systems - Review of Systems Eyes: negative: Pain, Vision Change, Conjunctivae Inflammation, Eyelid Inflammation, Redness, Other ENT: negative: Ear Pain, Ear Discharge, Nose Pain, Nose Discharge, Nose Congestion, Mouth Pain, Mouth Swelling, Throat Pain, Throat Swelling, Other Respiratory: negative: Cough, Dry, Shortness of Breath, Hemoptysis, SOB with Excertion, Pleuritic Pain, Sputum, Wheezing Cardiovascular: negative: chest pain, palpitations, orthopnea, paroxysmal nocturnal dyspnea, edema, light headedness, other Gastrointestinal: negative: Nausea, Vomiting, Abdominal Pain, Diarrhea, Constipation, Melena, Hematochezia, Other Genitourinary: negative: Dysuria, Frequency, Incontinence, Hematuria, Retention , Other - Medications/Allergies Allergies/Adverse Reactions: Allergies Allergy/AdvReac Type Severity Reaction Status Date / Time No Known Allergies Allergy Unverified 04/10/18 11:18 Medications: Current Medications Acetaminophen (Tylenol) 1,000 mg PO Q6H PRN PRN Reason: Headache/Fever or Mild Pain Last Admin: 04/11/18 23:07 Dose: 1,000 mg Aspirin (Ecotrin) 325 mg PO DAILY [facility] Last Admin: 04/14/18 08:31 Dose: 325 mg Atorvastatin Calcium (Lipitor) 20 mg PO HS [facility] Last Admin: 04/13/18 21:29 Dose: 20 mg Clonidine (Catapres) 0.1 mg PO Q4H PRN PRN Reason: Systolic BP > 180 Last Admin: 04/12/18 12:09 Dose: 0.1 mg Clopidogrel Bisulfate (Plavix) 75 mg PO DAILY [facility] Last Admin: 04/14/18 08:27 Dose: 75 mg Dextrose/Water (Dextrose 50%) 25 gm SLOW IVP PRN PRN PRN Reason: Hypoglycemia Enoxaparin Sodium (Lovenox) 40 mg SC 0900 [facility] Last Admin: 04/14/18 08:37 Dose: 40 mg Famotidine (Pepcid) 20 mg PO BID [facility] Last Admin: 04/14/18 08:35 Dose: 20 mg Glucagon (Glucagon) 1 mg IM PRN PRN PRN Reason: Hypoglycemia Hydralazine HCl (Apresoline) 10 mg SLOW IVP Q4H PRN PRN Reason: Systolic BP > 180 Dextrose/Water (D5w) 1,000 mls @ 0 mls/hr IV .Q0M PRN; As Directed PRN Reason: Hypoglycemia Sodium Chloride (Normal Saline 0.9%) 1,000 mls @ 50 mls/hr IV .Q20H [facility] Last Admin: 04/14/18 06:12 Dose: 1,000 mls Insulin Glargine 25 units/ (Miscellaneous Medication) 0.25 mls @ 0 mls/hr SC BID [facility] Last Admin: 04/14/18 08:37 Dose: 0.25 mls Insulin Human Lispro (Humalog) 0 units SC .AGGRESSIVE SLIDING PRN PRN Reason: Aggressive Correctional Scale Last Admin: 04/14/18 11:46 Dose: 6 unit Insulin Human Lispro (Humalog) 0 units SC .BEDTIME SLIDING SC PRN PRN Reason: Bedtime Correctional Scale Last Admin: 04/10/18 21:29 Dose: 2 unit Insulin Human Lispro (Humalog) 6 units SC TID [facility] Last Admin: 04/14/18 08:38 Dose: 6 unit Lisinopril (Zestril) 20 mg PO BID [facility] Last Admin: 04/14/18 08:32 Dose: 20 mg Meclizine HCl (Antivert) 12.5 mg PO Q6H PRN PRN Reason: Dizziness Last Admin: 04/13/18 21:29 Dose: 12.5 mg Ondansetron HCl (Zofran Odt) 8 mg PO Q4H PRN PRN Reason: Nausea/Vomiting Promethazine HCl (Phenergan) 25 mg IM/IV Q6H PRN PRN Reason: Nausea/Vomiting Last Admin: 04/12/18 08:21 Dose: 25 mg Sodium Chloride (Flush - Normal Saline) 10 ml IVF Q12HR [facility] Last Admin: 04/14/18 11:03 Dose: Not Given Sodium Chloride (Flush - Normal Saline) 10 ml IVF PRN PRN PRN Reason: Saline Flush
[2018-04-14] MEDS ORDERED: Amlodipine 10 MG TAB PO SCH (14:30)
[2018-04-14] MEDS: Insulin Glargine 30 UNITS in Pre-Filled Syringe 1 EACH SC SCH (21:41)
[2018-04-14] MEDS: Atorvastatin Calcium 20 MG TAB PO SCH (21:41)
[2018-04-15] MEDS: HumaLOG 300 UNITS/3 ML VIAL SC PRN ×2 (06:28→22:22)
[2018-04-15] MEDS: Lisinopril 20 MG TAB PO SCH ×2 (08:55→20:47)
[2018-04-15] MEDS: Famotidine 20 MG TAB PO SCH ×2 (08:56→20:48)
[2018-04-15] MEDS: Amlodipine 10 MG TAB PO SCH (08:56)
[2018-04-15] MEDS: Aspirin 325 mg Enteric Coated Tablet PO SCH (08:56)
[2018-04-15] MEDS: Clopidogrel Bisulfate 75 MG TAB PO SCH (08:56)
[2018-04-15] MEDS: HumaLOG 300 UNITS/3 ML VIAL SC SCH ×3 (08:57→18:17)
[2018-04-15] MEDS: Enoxaparin Sodium 40 MG/0.4 ML SYRINGE SC SCH (08:57)
[2018-04-15] MEDS: Insulin Glargine 30 UNITS in Pre-Filled Syringe 1 EACH SC SCH ×2 (08:58→20:48)
--- NOTE | 2018-04-15 10:51 | PDOC.PN ---
- Subjective Encounter Start Date: 04/15/18 Encounter Start Time: 10:51 Subjective: pt up in bed no complains - Objective Resuscitation Status: Resuscitation Status FULL:Full Resuscitation Vital Signs & Weight: Vital Signs (12 hours) Temp Pulse Resp BP BP BP Pulse Ox 04/15/18 08:56 76 159/80 H 04/15/18 08:55 159/80 H 04/15/18 08:00 97.8 F 76 14 04/15/18 07:33 97.8 F 76 14 159/80 H 96 04/15/18 04:12 98.0 F 75 16 160/80 H 97 04/15/18 00:03 99.3 F 80 18 150/82 H 94 L Weight Admit Weight 200 lb 3 oz Weight 200 lb 3 oz I&O: 04/14/18 04/15/18 04/16/18 06:59 06:59 06:59 Intake Total 650 Output Total 275 575 Balance -275 75 Result Diagrams: 04/14/18 05:41 04/14/18 05:41 Additional Labs: Accuchecks 04/15/18 04/15/18 04/14/18 09:09 05:30 21:11 POC Glucose 142 H 198 H 197 H 04/14/18 04/14/18 16:39 11:01 POC Glucose 208 H 226 H Phys Exam - Physical Examination HEENT: PERRLA, moist MMs, sclera anicteric, TM's clear, oral pharynx no lesions , 2+ tonsils Neck: no nodes, no JVD, supple, full ROM Respiratory: no wheezing, no rales, no rhonchi, wheezing present, clear to auscultation bilateral Cardiovascular: RRR, no significant murmur, no rub, gallop, irregular Gastrointestinal: soft, non-tender, no distention, positive bowel sounds right finger to nose is off, moving all ext Psychiatric: normal affect, A&O x 3 Dx/Plan - Plan * 1) cerebellum stroke 2) diabetes type 2 3) CAD s/p cabg 4) htn plan: MRI indicates multiple areas of stroke in his cerebellum, will consult neurology, echo, transfer pt to stroke unit and will monitor on tele. will also check her carotid. pt's hbg alc is 10 most likely pt is not compliant with his meds. He has had a bypass and states he is not on any meds. will start pt on asa /statin/lisinopril for now. 04/12 plavix added, will get cta neck and head. will consult cardiology for TONY. pt evaluated pt, will need inpatient rehab. 04/13 insulin dose adjusted, tid insulin added. will also increase pt's lisinopril to 20mg bid. spoke with Dr Gaxiola about pt's double vision. Recommended eye patch and his double vision will improve. pt had TONY today per nursing staff normal. will wait for official report. 04/14 pt waiting to be discharged to inpatient. waiting for insurance auth. lantus dose adjusted today. norvasc added. 04/15 Premeals insulin increased. will add metoprolol since bp is still a bit high. waiting for bed. Review of Systems - Review of Systems Eyes: negative: Pain, Vision Change, Conjunctivae Inflammation, Eyelid Inflammation, Redness, Other ENT: negative: Ear Pain, Ear Discharge, Nose Pain, Nose Discharge, Nose Congestion, Mouth Pain, Mouth Swelling, Throat Pain, Throat Swelling, Other Respiratory: negative: Cough, Dry, Shortness of Breath, Hemoptysis, SOB with Excertion, Pleuritic Pain, Sputum, Wheezing Cardiovascular: negative: chest pain, palpitations, orthopnea, paroxysmal nocturnal dyspnea, edema, light headedness, other Gastrointestinal: negative: Nausea, Vomiting, Abdominal Pain, Diarrhea, Constipation, Melena, Hematochezia, Other Genitourinary: negative: Dysuria, Frequency, Incontinence, Hematuria, Retention , Other Musculoskeletal: negative: Neck Pain, Shoulder Pain, Arm Pain, Back Pain, Hand Pain, Leg Pain, Foot Pain, Other Neurological: Other (double vision) - Medications/Allergies Allergies/Adverse Reactions: Allergies Allergy/AdvReac Type Severity Reaction Status Date / Time No Known Allergies Allergy Unverified 04/10/18 11:18 Medications: Current Medications Acetaminophen (Tylenol) 1,000 mg PO Q6H PRN PRN Reason: Headache/Fever or Mild Pain Last Admin: 04/11/18 23:07 Dose: 1,000 mg Amlodipine Besylate (Norvasc) 10 mg PO DAILY [facility] Last Admin: 04/15/18 08:56 Dose: 10 mg Aspirin (Ecotrin) 325 mg PO DAILY [facility] Last Admin: 04/15/18 08:56 Dose: 325 mg Atorvastatin Calcium (Lipitor) 20 mg PO HS [facility] Last Admin: 04/14/18 21:41 Dose: 20 mg Clonidine (Catapres) 0.1 mg PO Q4H PRN PRN Reason: Systolic BP > 180 Last Admin: 04/12/18 12:09 Dose: 0.1 mg Clopidogrel Bisulfate (Plavix) 75 mg PO DAILY [facility] Last Admin: 04/15/18 08:56 Dose: 75 mg Dextrose/Water (Dextrose 50%) 25 gm SLOW IVP PRN PRN PRN Reason: Hypoglycemia Enoxaparin Sodium (Lovenox) 40 mg SC 0900 [facility] Last Admin: 04/15/18 08:57 Dose: 40 mg Famotidine (Pepcid) 20 mg PO BID [facility] Last Admin: 04/15/18 08:56 Dose: 20 mg Glucagon (Glucagon) 1 mg IM PRN PRN PRN Reason: Hypoglycemia Hydralazine HCl (Apresoline) 10 mg SLOW IVP Q4H PRN PRN Reason: Systolic BP > 180 Sodium Chloride (Normal Saline 0.9%) 1,000 mls @ 50 mls/hr IV .Q20H [facility] Last Admin: 04/14/18 21:45 Dose: 1,000 mls Insulin Glargine 30 units/ (Miscellaneous Medication) 0.3 mls @ 0 mls/hr SC BID [facility] Last Admin: 04/15/18 08:58 Dose: 0.3 mls Insulin Human Lispro (Humalog) 0 units SC .AGGRESSIVE SLIDING PRN PRN Reason: Aggressive Correctional Scale Last Admin: 04/15/18 06:28 Dose: 3 unit Insulin Human Lispro (Humalog) 0 units SC .BEDTIME SLIDING SC PRN PRN Reason: Bedtime Correctional Scale Last Admin: 04/10/18 21:29 Dose: 2 unit Insulin Human Lispro (Humalog) 8 units SC [facility] Lisinopril (Zestril) 20 mg PO BID [facility] Last Admin: 04/15/18 08:55 Dose: 20 mg Meclizine HCl (Antivert) 12.5 mg PO Q6H PRN PRN Reason: Dizziness Last Admin: 04/13/18 21:29 Dose: 12.5 mg Metoprolol Tartrate (Lopressor) 25 mg PO BID [facility] Ondansetron HCl (Zofran Odt) 8 mg PO Q4H PRN PRN Reason: Nausea/Vomiting Promethazine HCl (Phenergan) 25 mg IM/IV Q6H PRN PRN Reason: Nausea/Vomiting Last Admin: 04/12/18 08:21 Dose: 25 mg Sodium Chloride (Flush - Normal Saline) 10 ml IVF Q12HR [facility] Last Admin: 04/15/18 09:07 Dose: 10 ml Sodium Chloride (Flush - Normal Saline) 10 ml IVF PRN PRN PRN Reason: Saline Flush
[2018-04-15] MEDS: Metoprolol Tartrate 25 MG TAB PO SCH (20:48)
[2018-04-15] MEDS: Atorvastatin Calcium 20 MG TAB PO SCH (20:48)
[2018-04-16] MEDS: HumaLOG 300 UNITS/3 ML VIAL SC PRN (06:22)
[2018-04-16] MEDS: Enoxaparin Sodium 40 MG/0.4 ML SYRINGE SC SCH (09:24)
[2018-04-16] MEDS: Insulin Glargine 30 UNITS in Pre-Filled Syringe 1 EACH SC SCH ×2 (09:25→21:19)
[2018-04-16] MEDS: Famotidine 20 MG TAB PO SCH ×2 (09:25→21:20)
[2018-04-16] MEDS: Lisinopril 20 MG TAB PO SCH ×2 (09:25→21:20)
[2018-04-16] MEDS: Metoprolol Tartrate 25 MG TAB PO SCH ×2 (09:25→21:20)
[2018-04-16] MEDS: Aspirin 325 mg Enteric Coated Tablet PO SCH (09:26)
[2018-04-16] MEDS: Amlodipine 10 MG TAB PO SCH (09:26)
[2018-04-16] MEDS: Clopidogrel Bisulfate 75 MG TAB PO SCH (09:26)
[2018-04-16] MEDS: HumaLOG 300 UNITS/3 ML VIAL SC SCH ×3 (09:27→17:29)
--- NOTE | 2018-04-16 10:58 | PDOC.PN ---
- Subjective Encounter Start Date: 04/16/18 Encounter Start Time: 07:20 Pt seen for followup re: ischemic CVA. Denies chest pain, shortness of breath, fevers or chills. - Objective Resuscitation Status: Resuscitation Status FULL:Full Resuscitation MAR Reviewed: Yes Vital Signs & Weight: Vital Signs (12 hours) Temp Pulse Resp BP BP Pulse Ox 04/16/18 09:26 76 04/16/18 09:25 137/80 04/16/18 08:59 97.8 F 76 15 96 04/16/18 07:40 97.8 F 76 15 137/80 96 04/16/18 04:00 98.3 F 78 16 158/82 H 98 04/16/18 00:00 97.7 F 79 16 157/82 H 97 Weight Admit Weight 200 lb 3 oz Weight 200 lb 3 oz I&O: 04/15/18 04/16/18 04/17/18 06:59 06:59 06:59 Intake Total 650 2600 Output Total 575 Balance 75 2600 Result Diagrams: 04/14/18 05:41 04/14/18 05:41 Additional Labs: Accuchecks 04/16/18 04/15/18 04/15/18 05:32 20:47 15:29 POC Glucose 180 H 265 H 127 H 04/15/18 11:07 POC Glucose 223 H EKG Reviewed by me: Yes (Tele: NSR) Phys Exam - Physical Examination Constitutional: NAD HEENT: moist MMs, sclera anicteric, oral pharynx no lesions, 2+ tonsils Neck: no nodes, no JVD, supple, full ROM Respiratory: no wheezing, no rales, no rhonchi, clear to auscultation bilateral Cardiovascular: RRR, no rub S1, S2 Gastrointestinal: soft, non-tender, no distention, positive bowel sounds Neurological: moves all 4 limbs Psychiatric: normal affect, A&O x 3 Dx/Plan (1) Ischemic cerebrovascular accident (CVA) Code(s): I63.9 - CEREBRAL INFARCTION, UNSPECIFIED Status: Acute Comment: continue aspirin, Plavix, statin. Awaiting insurance authorization for in- patient rehab. (2) DM2 (diabetes mellitus, type 2) Status: Chronic Comment: continue accuchecks, insulin (3) CAD (coronary artery disease) Code(s): I25.10 - ATHSCL HEART DISEASE OF [place] CORONARY ARTERY W/O ANG PCTRS Status: Chronic Comment: s/p CABG, stable (4) HTN (hypertension) Code(s): I10 - ESSENTIAL (PRIMARY) HYPERTENSION Status: Chronic Comment: Controlled - Plan * . Review of Systems - Review of Systems Constitutional: negative: fever, chills, sweats, weakness, malaise Respiratory: negative: Cough, Shortness of Breath, SOB with Excertion, Pleuritic Pain, Wheezing Cardiovascular: negative: chest pain, palpitations, orthopnea, paroxysmal nocturnal dyspnea, edema, light headedness Gastrointestinal: negative: Nausea, Vomiting, Abdominal Pain, Diarrhea, Constipation, Melena, Hematochezia Genitourinary: negative: Dysuria, Frequency, Incontinence, Hematuria, Retention Neurological: negative: Weakness, Numbness, Incoordination, Change in Speech, Confusion, Seizures - Medications/Allergies Allergies/Adverse Reactions: Allergies Allergy/AdvReac Type Severity Reaction Status Date / Time No Known Allergies Allergy Unverified 04/10/18 11:18 Medications: Current Medications Acetaminophen (Tylenol) 1,000 mg PO Q6H PRN PRN Reason: Headache/Fever or Mild Pain Last Admin: 04/11/18 23:07 Dose: 1,000 mg Amlodipine Besylate (Norvasc) 10 mg PO DAILY [facility] Last Admin: 04/16/18 09:26 Dose: 10 mg Aspirin (Ecotrin) 325 mg PO DAILY [facility] Last Admin: 04/16/18 09:26 Dose: 325 mg Atorvastatin Calcium (Lipitor) 20 mg PO HS [facility] Last Admin: 04/15/18 20:48 Dose: 20 mg Clonidine (Catapres) 0.1 mg PO Q4H PRN PRN Reason: Systolic BP > 180 Last Admin: 04/12/18 12:09 Dose: 0.1 mg Clopidogrel Bisulfate (Plavix) 75 mg PO DAILY [facility] Last Admin: 04/16/18 09:26 Dose: 75 mg Dextrose/Water (Dextrose 50%) 25 gm SLOW IVP PRN PRN PRN Reason: Hypoglycemia Enoxaparin Sodium (Lovenox) 40 mg SC 0900 [facility] Last Admin: 04/16/18 09:24 Dose: 40 mg Famotidine (Pepcid) 20 mg PO BID [facility] Last Admin: 04/16/18 09:25 Dose: 20 mg Glucagon (Glucagon) 1 mg IM PRN PRN PRN Reason: Hypoglycemia Hydralazine HCl (Apresoline) 10 mg SLOW IVP Q4H PRN PRN Reason: Systolic BP > 180 Insulin Glargine 30 units/ (Miscellaneous Medication) 0.3 mls @ 0 mls/hr SC BID [facility] Last Admin: 04/16/18 09:25 Dose: 0.3 mls Insulin Human Lispro (Humalog) 0 units SC .AGGRESSIVE SLIDING PRN PRN Reason: Aggressive Correctional Scale Last Admin: 04/16/18 06:22 Dose: 3 unit Insulin Human Lispro (Humalog) 0 units SC .BEDTIME SLIDING SC PRN PRN Reason: Bedtime Correctional Scale Last Admin: 04/15/18 22:22 Dose: 3 unit Insulin Human Lispro (Humalog) 8 units SC [facility] Last Admin: 04/16/18 09:27 Dose: 8 unit Lisinopril (Zestril) 20 mg PO BID [facility] Last Admin: 04/16/18 09:25 Dose: 20 mg Meclizine HCl (Antivert) 12.5 mg PO Q6H PRN PRN Reason: Dizziness Last Admin: 04/13/18 21:29 Dose: 12.5 mg Metoprolol Tartrate (Lopressor) 25 mg PO BID [facility] Last Admin: 04/16/18 09:25 Dose: 25 mg Ondansetron HCl (Zofran Odt) 8 mg PO Q4H PRN PRN Reason: Nausea/Vomiting Promethazine HCl (Phenergan) 25 mg IM/IV Q6H PRN PRN Reason: Nausea/Vomiting Last Admin: 04/12/18 08:21 Dose: 25 mg Sodium Chloride (Flush - Normal Saline) 10 ml IVF Q12HR [facility] Last Admin: 04/16/18 10:20 Dose: 10 ml Sodium Chloride (Flush - Normal Saline) 10 ml IVF PRN PRN PRN Reason: Saline Flush
[2018-04-16] MEDS ORDERED: Melatonin 3 MG TAB PO PRN (18:08)
[2018-04-16] MEDS: Atorvastatin Calcium 20 MG TAB PO SCH (21:20)
[2018-04-17] MEDS: Clopidogrel Bisulfate 75 MG TAB PO SCH (09:30)
[2018-04-17] MEDS: Aspirin 325 mg Enteric Coated Tablet PO SCH (09:30)
[2018-04-17] MEDS: Lisinopril 20 MG TAB PO SCH (09:30)
[2018-04-17] MEDS: Metoprolol Tartrate 25 MG TAB PO SCH (09:30)
[2018-04-17] MEDS: Famotidine 20 MG TAB PO SCH (09:31)
[2018-04-17] MEDS: HumaLOG 300 UNITS/3 ML VIAL SC SCH ×3 (09:31→18:17)
[2018-04-17] MEDS: Amlodipine 10 MG TAB PO SCH (09:31)
[2018-04-17] MEDS: Enoxaparin Sodium 40 MG/0.4 ML SYRINGE SC SCH (09:31)
[2018-04-17] MEDS: Insulin Glargine 30 UNITS in Pre-Filled Syringe 1 EACH SC SCH (09:33)
[2018-04-17 15:47] VITALS: TEMP 98.4
[2018-04-17 16:26] VITALS: BP 197/101
[2018-04-17] MEDS: HumaLOG 300 UNITS/3 ML VIAL SC PRN (17:22)
--- NOTE | 2018-04-17 18:31 | EKG ---
Test Reason : Blood Pressure : / mmHG Vent. Rate : 073 BPM Atrial Rate : 073 BPM P-R Int : 152 ms QRS Dur : 100 ms QT Int : 414 ms P-R-T Axes : 027 026 030 degrees QTc Int : 456 ms Normal sinus rhythm Incomplete right bundle branch block Borderline ECG When compared with ECG of 10-APR-2018 07:15, (Unconfirmed) Premature ventricular complexes are no longer Present Confirmed by GABRIEL NY (2) on 04/17/2018 6:31:10 PM Referred By: ANANT Confirmed By:GABRIEL NY
--- NOTE | 2018-04-18 02:28 | DIS ---
DATE OF ADMISSION: 04/10/2018 DATE OF DISCHARGE: 04/17/2018 PRIMARY CARE PHYSICIAN: Roosevelt Lopez MD DISCHARGE DIAGNOSES: 1. Ischemic cerebellar stroke. 2. Hypertension. CONDITION OF PATIENT ON THE DAY OF DISCHARGE: Stable. I assessed Mr. Moraes on the day of discharg e. He denies any chest pain or shortness of breath. Vital signs are stable. S1 and S2 are heard, r egular. Lungs are clear to auscultation bilaterally. DISCHARGE MEDICATIONS: Norvasc 10 mg daily, aspirin 81 mg daily, Lipitor 20 mg at bedtime, Plavix 75 mg daily, Cymbalta 30 mg two times a day, Pepcid 20 mg two times a day, Humalog 8 units with meals, Lantus insulin 30 units two times a day, lisinopril 20 mg two times a day, Lopressor 25 mg two times a day, Tylenol Extra Strength p.r.n., melatonin 3 mg at bedtime as needed. HOSPITAL COURSE: Mr. Moraes is a pleasant 52-year-old gentleman who was admitted to [facility] on 04/11/2018 for ischemic cerebellar stroke. MRI of the brain done at the time o f admission showed multiple acute PICA distribution areas of infarctions, more prominent on the right than on the left. He also had small right posterior medullary area of acute infarction. He was seen by Cardiology and Neurology services. CT angiogram of the head and neck did not reveal a ny hemodynamically significant stenosis involving major neck arterial structures or intracranial ava rial structures. Transesophageal echocardiogram on 04/14/2018 showed left ventricular ejection fract ion of 50%-55%, E/A flow reversal suggestive of diastolic dysfunction. No PFO was noted by color Dop pler or contrast bubble. No thrombus was noted in the left atrium or left atrial appendage. He was seen by therapy services. He was recommended inpatient rehabilitation. He is being discharge d to inpatient rehab for further management. He had significant hypertension during this hospitalization; therefore, anti-hypertensives were added to his medication regimen. He also had elevated blood glucose values, and his insulin dose was incr eased as well. Many thanks for allowing me to participate in your patient's care. Please feel free to contact me wi th any questions or concerns. DISCHARGE DESTINATION: [facility]. TOTAL AMOUNT OF TIME SPENT COORDINATING THIS DISCHARGE: 34 minutes.
== END 2018-04-17 18:14 | DRG 65 ==
LOC: SCSER 06:59 → T4-A 09:40 → 2SE 04-11 22:27
PROVIDERS: ADMIT Family Medicine; ATTEND Family Medicine
DX: I63.9 Cerebral infarction, unspecified (principal); N17.9 Acute kidney failure, unspecified; E11.65 Type 2 diabetes mellitus with hyperglycemia; Z79.4 Long term (current) use of insulin; I10 Essential (primary) hypertension; Z79.899 Other long term (current) drug therapy; Z95.1 Presence of aortocoronary bypass graft; E86.0 Dehydration; I25.2 Old myocardial infarction; I25.10 Atherosclerotic heart disease of native coronary artery without angina pectoris; Z79.82 Long term (current) use of aspirin; Z87.891 Personal history of nicotine dependence; E78.5 Hyperlipidemia, unspecified
CPT/HCPCS: 36415; 36416; 70496; 70498; 70551; 71045; 80048; 80053; 80061; 80306; 81003; 82010; 82330; 82553; 82803; 83036; 83690; 84484; 85007; 85025; 85027; 87040; 93005; 93010; 93306; 93312; 94760; 96361; 96374; 96375; 96376; A4216; G8978-GP-CK; G8979-GP-CJ; G8987-GO-CJ; G8988-GO-CH; G8996-GN-CH; G8997-GN-CH; J1650; J1815; J2405; J2550; J2704; S0028

== ENCOUNTER 2019-05-27 10:51 | Emergency (ER) | payer OTHER ==
[2019-05-27 11:23] LABS: #Basophils 0.2 thou/uL (0.0-0.2); #Eosinphils 0.2 thou/uL (0.0-0.7); #Lymphocytes 3.2 thou/uL (1.20-3.40); #Monocytes 0.6 thou/uL (0.11-0.59); #Neutrophils 8.6 thou/uL (1.40-6.50); %Basophils 1.3 % (0.0-1.0); %Eosinophils 1.9 % (0.0-10.0); %Monocytes 4.4 % (0.0-10.0); %Neutrophils 67.4 % (42.0-75.0); Hemoglobin 19.6 g/dL (14.0-18.0); Mean Corpuscular HGB CONC 34.9 g/dL (32.0-36.0); Mean Corpuscular Hemoglobin 29.5 pg (27.0-31.0); Mean Corpuscular Volume 84.6 fL (78.0-98.0); Mean Platelet Volume 9.5 fL (7.4-10.4); Platelet Count 264 thou/uL (130-400); RBC Distribution Width 12.6 % (11.5-14.5); Red Blood Cell (RBC) Count 6.62 mill/uL (4.70-6.10); White Blood Cell (WBC) Count 12.7 thou/uL (4.8-10.8)
[2019-05-27 11:37] LABS: ALT (SGPT) 19 U/L (8-55); AST (SGOT) 13 U/L (5-34); Albumin 4.2 g/dL (3.5-5.0); Alkaline Phosphatase 101 U/L (40-150); Anion Gap 15 mmol/L (10-20); BUN (Urea Nitrogen) 12 mg/dL (8.4-25.7); Bilirubin, Total 0.6 mg/dL (0.2-1.2); Calc. Creatinine Clearance 0 mL/min (70-130); Calcium 9.6 mg/dL (7.8-10.44); Carbon Dioxide 25 mmol/L (22-29); Chloride 100 mmol/L (98-107); Estimated GFR-MDRD 86; Globulin 3.1 g/dL (2.4-3.5); Glucose 306 mg/dL (70-105); Potassium 4.3 mmol/L (3.5-5.1); Protein, Total 7.3 g/dL (6.0-8.3); Sodium 136 mmol/L (136-145)
--- NOTE | 2019-05-27 12:12 | CT ---
CT Chest Trauma W Con HISTORY: Fall with left-sided rib pain. COMPARISON: None. FINDINGS: The lungs are clear of any infiltrative process. There are no signs of pneumothorax or evid ence for pleural effusion. Postop sternotomy changes are present. The thoracic aorta is normal in caliber. No mediastinal hemato ma. There is an area subtle lucency involving the anterior aspect of the left rib, this could be a older fracture but potentially could be acute in nature. Clinical correlation as to whether this is the area of patient's pain. There are arthritic changes of the spine without acute injury. Visualized portions of the liver spleen and pancreas are unremarkable small gallstones are noted. Vis ualized portions of the kidneys are normal. IMPRESSION: Left anterior fourth rib fracture I would favor that this is an older fracture, clinical correlation is to whether it relates to area of patient's pain.
[2019-05-27] MEDS ORDERED: Ketorolac Tromethamine 30 MG/ML VIAL ONE (12:19)
== END 2019-05-27 12:50 | disposition left against medical advice (07) ==
LOC: SCSER 10:51
DX: S22.32XA Fracture of one rib, left side, initial encounter for closed fracture (principal); I25.2 Old myocardial infarction; E11.9 Type 2 diabetes mellitus without complications; W17.89XA Other fall from one level to another, initial encounter; Z79.4 Long term (current) use of insulin
CPT/HCPCS: 71260; 80053; 84484; 85025; 93005; 94760; 96361; 96374; J1885

== ENCOUNTER 2020-03-19 10:08 | Inpatient (IN) | payer OTHER ==
[2020-03-19] MEDS ORDERED: Aspirin Chewable 81 MG TAB ONE (10:32)
[2020-03-19 10:40] LABS: #Basophils 0.1 thou/uL (0.0-0.2); #Eosinphils 0.1 thou/uL (0.0-0.7); #Lymphocytes 2.3 thou/uL (1.20-3.40); #Monocytes 0.8 thou/uL (0.11-0.59); #Neutrophils 10.7 thou/uL (1.40-6.50); %Basophils 0.8 % (0.0-1.0); %Eosinophils 0.7 % (0.0-10.0); %Lymphocytes 16.6 % (21.0-51.0); %Monocytes 5.4 % (0.0-10.0); %Neutrophils 76.4 % (42.0-75.0); Hemoglobin 18.5 g/dL (14.0-18.0); Mean Corpuscular HGB CONC 31.7 g/dL (32.0-36.0); Mean Corpuscular Hemoglobin 29.1 pg (27.0-31.0); Mean Corpuscular Volume 91.9 fL (78.0-98.0); Mean Platelet Volume 8.1 fL (7.4-10.4); Platelet Count 358 thou/uL (130-400); RBC Distribution Width 12.6 % (11.5-14.5); Red Blood Cell (RBC) Count 6.36 mill/uL (4.70-6.10)
[2020-03-19 11:02] LABS: ALT (SGPT) 61 U/L (8-55); AST (SGOT) 23 U/L (5-34); Albumin 4.1 g/dL (3.5-5.0); Alkaline Phosphatase 284 U/L (40-110); Anion Gap 16 mmol/L (10-20); BUN (Urea Nitrogen) 12 mg/dL (8.4-25.7); CK (CPK) 47 U/L (30-200); Calc. Creatinine Clearance 0 mL/min (70-130); Calcium 9.8 mg/dL (7.8-10.44); Carbon Dioxide 27 mmol/L (22-29); Chloride 98 mmol/L (98-107); Estimated GFR-MDRD 77; Globulin 3.4 g/dL (2.4-3.5); Glucose 215 mg/dL (70-105); Lipase 7 U/L (8-78); Potassium 3.9 mmol/L (3.5-5.1); Protein, Total 7.5 g/dL (6.0-8.3); Sodium 137 mmol/L (136-145)
[2020-03-19] MEDS ORDERED: Iopamidol 370 76% 100 ML VIAL ONE (11:07)
--- NOTE | 2020-03-19 11:24 | PDOC.FPRHP ---
- History of Present Illness Chief Complaint: SOB, Weakness History of Present Illness: Mr. Moraes is a 54 yo male with extensive past CAD history with X4 CABG, who presents with intermittent CP, SOB and weakness. Patient reports that he has been very SOB for past several days. States has difficulty walking to bathroom from the living room (relatively short distance per patient). Has had chest pain and intermittent SOB on/off for 1 year, worsened in past 2-3 days. Feels weak all over, which he attributes to history of strokes. Says he "feels drunk" like his mentation is foggy and he does not have clear thinking. Chest pain gets better over time and with rest, worsens with activity. Patient states he has been taking most of his home medications, but admits to not having taken depression & anxiety medications recently. Has not had much of an appetite, says he has been drinking about 2L of fluid (mostly Diet Coke) a day. Blood sugars in AM have been 150-180s. Takes 30 units BID of insulin. Has not been checking home BP. Feels like he has gained a few pounds over the last several days. The past two days he has developed LE swelling, which is a new symptom for him. Pt c/o palpitations, and orthopnea. Pt denies any chest pain at the moment. Pt admits to not taking medications as prescribed. Does have a history of multiple CVA vs TIA and 4VCABG along with 3 stents placed. ED Course: Given 324 mg ASA, 80 mg Lovenox. Obtained CXRay CHF & CT chest neg for PE, with bilateral pleural effusions. - Allergies/Adverse Reactions Allergies Allergy/AdvReac Type Severity Reaction Status Date / Time No Known Allergies Allergy Unverified 04/10/18 11:18 - Home Medications Medication Instructions Recorded Confirmed Type Clopidogrel Bisulfate [Plavix] 75 mg PO DAILY tab 04/13/18 Rx Acetaminophen [Tylenol Extra 650 mg PO Q6H PRN 03/19/20 03/19/20 History Strength] Empagliflozin [Jardiance] 25 mg PO DAILY 03/19/20 03/19/20 History HumaLOG [HumaLOG Vial] 10 units SC AC 03/19/20 History Insulin Glargine [Lantus Vial] 35 units SC BID 03/19/20 History Lisinopril [Zestril] 40 mg PO DAILY 03/19/20 History Pregabalin [Lyrica] 100 mg PO Q8H 03/19/20 03/19/20 History Rosuvastatin [Crestor] 20 mg PO DAILY 03/19/20 03/19/20 History Comments: above medication list not current, will review with [facility] records - History PMHx: CAD, DM II, Bipolar II, HLD, HTN, Nicotine dependence, MDD, WILFRIDO PSHx: hx of 4V-CABG, hx of 3 stent placements FHx: mom with CAD and CT, dad with DM Social: current smoker (1/2 ppd down from 3ppd x 30 years), previous EtOH use ( quit 3 years ago), denies ilicit drug use Code status: DNR-DNI Pt has not been compliant with taking psych medications - Review of Systems General: reports: weight/appetite/sleep changes, fatigue. denies: fever/chills Eyes: denies: vision changes ENT: denies: nasal congestion Respiratory: reports: shortness of breath, exercise intolerance. denies: cough , congestion Cardiovascular: reports: chest pain, palpitation, edema, orthopnea Skin: denies: rashes, lesions, jaundice Musculoskeletal: reports: swelling. denies: pain Neurological: reports: weakness. denies: syncope Psychological: reports: anxiety, depression - Vital signs BP: 121/79 HR: 101 RR: 25 Tmax: 98.0F Pox: 92% on RA Wt: 81.3 kg - Physical Exam Constitutional: NAD, awake, alert and oriented, well developed HEENT: normocephalic and atraumatic, EOMI, conjunctiva clear, no scleral icterus , grossly normal vision, grossly normal hearing, MMM Neck: supple, trachea midline, no JVD Chest: no-tender to palpation, no lesions Heart: no murmurs/rubs/gallops, pulses present -Heart: tachycardic trace BLE Lungs: no respiratory distress, good air movement -Lungs: bibasilar crackles Abdomen: soft, non-tender, bowel sounds present Musculoskeletal: normal structure, normal tone, ROM grossly normal Neurological: no focal deficit, normal sensation Skin: no rash/lesions, good turgor, no jaundice Heme/Lymphatic: no unusual bruising or bleeding, no purpura, no petechia Psychiatric: normal mood and affect, good judgment and insight, intact recent and remote memory FMR H&P: Results - Labs Result Diagrams: 03/19/20 10:21 03/19/20 10:21 Lab results: WBC 14.0 thou/uL (4.8-10.8) H 03/19/20 10:21 Hgb 18.5 g/dL (14.0-18.0) H 03/19/20 10:21 Hct 58.4 % (42.0-52.0) H 03/19/20 10:21 MCV 91.9 fL (78.0-98.0) 03/19/20 10:21 Plt Count 358 thou/uL (130-400) 03/19/20 10:21 Neutrophils % 76.4 % (42.0-75.0) H 03/19/20 10:21 Sodium 137 mmol/L (136-145) 03/19/20 10:21 Potassium 3.9 mmol/L (3.5-5.1) 03/19/20 10:21 Chloride 98 mmol/L (98-107) 03/19/20 10:21 Carbon Dioxide 27 mmol/L (22-29) 03/19/20 10:21 BUN 12 mg/dL (8.4-25.7) 03/19/20 10:21 Creatinine 1.01 mg/dL (0.7-1.3) 03/19/20 10:21 Glucose 215 mg/dL (70-105) H 03/19/20 10:21 Calcium 9.8 mg/dL (7.8-10.44) 03/19/20 10:21 Total Bilirubin 1.0 mg/dL (0.2-1.2) 03/19/20 10:21 AST 23 U/L (5-34) 03/19/20 10:21 ALT 61 U/L (8-55) H 03/19/20 10:21 Alkaline Phosphatase 284 U/L (40-110) H 03/19/20 10:21 Creatine Kinase 47 U/L (30-200) 03/19/20 10:21 B-Natriuretic Peptide 1142.0 pg/mL (0-100) H 03/19/20 10:21 Serum Total Protein 7.5 g/dL (6.0-8.3) 03/19/20 10:21 Albumin 4.1 g/dL (3.5-5.0) 03/19/20 10:21 Lipase 7 U/L (8-78) L 03/19/20 10:21 - Radiology Interpretation Chest x-ray Status: image reviewed by me (blunting of the Costo-phrenic angles), report reviewed by me (CHF) CT scan - chest Status: report reviewed by me (No evidence for PE. Bilateral pleural effusions atelectasis pulmonary LAD, which needs f/u.) FMR H&P: A/P - Problem List (1) NSTEMI (non-ST elevated myocardial infarction) Current Visit: Yes Status: Acute Code(s): I21.4 - NON-ST ELEVATION (NSTEMI) MYOCARDIAL INFARCTION (2) Elevated d-dimer Current Visit: Yes Status: Acute Code(s): R79.89 - OTHER SPECIFIED ABNORMAL FINDINGS OF BLOOD CHEMISTRY (3) CAD (coronary artery disease) Current Visit: No Status: Chronic Code(s): I25.10 - ATHSCL HEART DISEASE OF [place] CORONARY ARTERY W/O ANG PCTRS Comment: s/p CABG, stable (4) DM2 (diabetes mellitus, type 2) Current Visit: No Status: Chronic Comment: continue accuchecks, insulin (5) HTN (hypertension) Current Visit: No Status: Chronic Code(s): I10 - ESSENTIAL (PRIMARY) HYPERTENSION Comment: Controlled (6) Elevated hemoglobin Current Visit: Yes Status: Acute Code(s): D58.2 - OTHER HEMOGLOBINOPATHIES - Plan 54 y/o M admitted to [facility] in for further treatment and eval of NSTEMI 1. Elevated Troponin level with concern for NSTEMI - Trop 1.934, trending - Elevated D-dimer, CTA chest ruleed out PE - 1 mg/kg lovenox BID - Pt appears volume overloaded, Echo ordered. Possible new onset HF. - Cardiology consulted, appreciate recommendations. 2. Likely new onset heart failure - cardiology consulted, appreciate recs - echo pending - Lasix 40 mg IV daily as lasix naive - daily weights, strict I/O's, fluid restriction <1500 mL daily. 3. Elevated D-Dimer - CTA ordered to rule out PE: neg for evidence of PE, but showed B pleural effusions. 4. Possible Coronavirus exposure - Mother in the unit being evaluated for covid-19. She had a neg result, but they are retesting due to increased suspicion. - COVID test pending, with droplet and airborne precautions. 5. Hx of CAD, S/P X4 vessel CABG - Pt has had stable angina throughout the course of the year. 6. Elevated Hgb/Hct - Possible polycythemia - Will recheck labs in the AM to trend. - Pt is a smoker, this is most likely the primary etiology 7. Hx of HTN - BP wnl - vitals Q4H 8. Hx of HLD - FLP pending 9. DM II - continue lantus 35 units BID - A1C pending. - ACHS accuchecks - Mild SSI 10. Hx of Bipolar 2, MDD and WILFRIDO - PT had not been taking psych medications - Pt does not want to take any psych drugs. Coded status: DNR, held conversation with pt who verbalizes understanding of his DNR status. Diet: HH, fluid restrict <1500 mL daily dvt ppx: lovenox Dispo: stable, admit to tele inpt for covid testing and NSTEMI workup/ treatment. FMR H&P: Upper Level - Plan Date/Time: 03/19/20 1558 I, Yrn Contreras MD, have evaluated this patient and agree with findings/ plan as outlined by project internship resident. Pertinent changes/additions are listed here. Elevated Troponin concern for NSTEMI - Hx of CABG and multiple stents - Trend troponins - Cardiology consulted, appreciate recommendations - Therapeutic lovenox - Continue ASA and Plavix Exposure to PUI COVID-19 - Will test for COVID due to risk and now hospitalization - Precautions placed DM - Restart insulin - Check HgbA1C - Accuchecks All other chronic conditions reviewed and medications to be restarted as appropriate. PCP: JOSE Noble CODE STATUS: DNAR Disposition: Stable, will admit to inpatient telemetry for further evaluation and treatment. Addendum - Attending - Attending Attestation Date/Time: 03/19/20 [id number] I personally evaluated the patient and discussed the management with Dr. Mayorga/ Ben. I agree with the History, Examination, Assessment and Plan documented above with any addition or exceptions noted below.
[2020-03-19 11:26] LABS: CKMB 2.4 ng/mL (0-6.6)
[2020-03-19] MEDS ORDERED: Enoxaparin Sodium 80 MG/0.8 ML SYRINGE ONE (11:27)
[2020-03-19 11:59] LABS: INR-International Normal Ratio 1.1; PTT 30.2 SEC (22.9-36.1); Prothrombin Time 13.8 SEC (12.0-14.7)
--- NOTE | 2020-03-19 12:01 | RAD ---
CHEST 1 VIEW: Date: 03/19/2020 HISTORY: Chest pain. Shortness of breath. COMPARISON: 04/10/2018. FINDINGS: Postop midline sternotomy. Cardiomegaly with bilateral vascular congestion, mild interstitial changes , and pleural effusions, concerning for developing congestive heart failure. No confluent lobar pneum onia. IMPRESSION: Evidence for developing congestive heart failure. Continue short-term follow-up for clearing or stabi lity. POS: [facility]
[2020-03-19] MEDS ORDERED: Ondansetron ODT 4 MG TAB PO PRN (12:10)
[2020-03-19] MEDS ORDERED: Nitroglycerin 0.4 MG TAB (25 Tab Bottle) PO PRN (12:12)
[2020-03-19] MEDS ORDERED: Nicotine 14 MG PATCH TD SCH (12:15)
--- NOTE | 2020-03-19 12:51 | CT ---
CT ANGIOGRAM CHEST WITH 3D RENDERING: Date: 03/19/2020 HISTORY: Dyspnea and chest pain. COMPARISON: 05/27/2019. FINDINGS: Moderate bilateral pleural effusions, as well as some pleural based atelectatic changes in both lung bases. Minimally enlarged lymph nodes including some prevascular nodes measuring up to 1.0 cm and lef t paratracheal nodes up to 0.8 cm, right paratracheal node up to 1.0 cm, and subcarinal node up to 1. 6 cm. These nodes are more prominent in size than the prior study and may well be reactive nodes. Thr ee vessel coronary artery calcific disease. Postop midline sternotomy. No convincing CT evidence for acute pulmonary embolism. No evidence for aortic aneurysm. Visualized upper abdomen is unremarkable. IMPRESSION: No convincing CT evidence for acute pulmonary embolism. Moderate bilateral pleural effusions as well as some scattered linear parenchymal changes and some partial subpleural atelectatic changes. Some mi nimally enlarged and borderline enlarged mediastinal lymph nodes showing some increase in size from 0 05/27/2019 study, these may well be reactive nodes. Consider short-term follow-up at some point depend ing upon clinical concern. POS: [facility]
[2020-03-19] MEDS ORDERED: Acetaminophen 325 MG TAB PO PRN (13:38)
[2020-03-19] MEDS ORDERED: Dextrose 5% in Water 1,000 ML IV PRN (13:39)
[2020-03-19 13:54] LABS: Hemoglobin A1c 12.9 % (4.0-6.0)
[2020-03-19 13:55] VITALS: BMI 23.8
[2020-03-19 13:55] LABS: Critical Call Chem Troponin I RESULT DECREASING; Troponin I 1.492 ng/mL (< 0.028)
[2020-03-19] MEDS ORDERED: Furosemide 40 MG/4 ML VIAL SLOW IVP SCH (15:15)
[2020-03-19 17:14] LABS: Troponin I 1.549 ng/mL (< 0.028)
[2020-03-19] MEDS: Carvedilol 3.125 MG TAB PO SCH (18:13)
[2020-03-19] MEDS: HumaLOG 300 UNITS/3 ML VIAL SC SCH (18:13)
[2020-03-19] MEDS: Insulin Glargine 35 UNITS in Pre-Filled Syringe 1 EACH SC SCH (20:00)
[2020-03-19] MEDS: Famotidine 20 MG TAB PO SCH (20:00)
[2020-03-19] MEDS: Enoxaparin Sodium 80 MG/0.8 ML SYRINGE SC SCH (20:01)
[2020-03-20 06:22] LABS: Anion Gap 13 mmol/L (10-20); BUN (Urea Nitrogen) 13 mg/dL (8.4-25.7); Calc. Creatinine Clearance 115 mL/min (70-130); Carbon Dioxide 26 mmol/L (22-29); Chloride 101 mmol/L (98-107); Cholesterol 165 mg/dl (< 200 Desired); Estimated GFR-MDRD Greater than 90; Glucose 73 mg/dL (70-105); HDL Cholesterol 33 mg/dL (>60 Neg Risk); LDL Cholesterol, Calculated 118 mg/dL; Potassium 4.1 mmol/L (3.5-5.1); Sodium 136 mmol/L (136-145); Triglycerides 68 mg/dL (Less than 150)
--- NOTE | 2020-03-20 06:27 | CON ---
DATE OF CONSULTATION: HISTORY: Anshu Moraes is a 54-year-old white male, admitted with shortness of breath and chest discomfort. Approximately seven years ago, he had myocardial infarction followed by placement of three stents while living in [place]. One year later this apparently restenosed, he underwent CABG x4 in [place]. I saw him when he was in the hospital here in March of 2018 with an episode of nausea, vomiting, and an intense spinning feeling. Head MRI revealed multiple acute areas of infarction, more prominent on the right than on the left. He underwent transesophageal echo by Dr. Guzman to rule out embolic event. He did not have a patent foramen ovale. Also, there was no left atrial or left atrial appendage thrombus. Plavix was added to his regimen at that time. Also, he was discharged on metoprolol 25 mg b.i.d. , however, he states he never took that and it is not amongst his medicines at the current time. Over the last four or five months, he has been noticing increasing shortness of breath with walking short distances. At times, he would also have episodes of PND. He would have episodes of chest pressure that felt like what he noticed before his myocardial infarction. These episodes would last approximately 10 minutes, although he may have multiple episodes occurring all day long. He also has noted that he started to have peripheral edema, which he has never noticed before. He came to the emergency room and was found to have an abnormal troponin I. Also, his mother is here for rule out COVID and so the decision was made to have him rule out COVID also. He denies any cough and denies any fever. PAST MEDICAL HISTORY: Myocardial infarction, coronary artery disease, hypertension, diabetes, hypercholesterolemia, CVA, bipolar disorder. MEDICATIONS: 1. Aspirin 325 daily. 2. Plavix 75 mg daily. 3. Jardiance 25 mg daily. 4. Humalog 10 units daily. 5. Lantus 35 units b.i.d. 6. Lisinopril 40 mg daily. 7. Lyrica 100 mg q.8 hours. 8. Rosuvastatin 20 mg daily. ALLERGIES: NONE. SOCIAL HISTORY: He did smoke two and a half to three packs per day for 30 years and then stopped around the time of his bypass surgery. He started vaping. At the present time, he is back to smoking one-half pack per day. He does not drink at the present time. FAMILY HISTORY: Mother had mitral valve replacement, but it does not sound as if anybody in the family has coronary artery disease. REVIEW OF SYSTEMS: A 10-point review of systems is otherwise unremarkable. PHYSICAL EXAMINATION: VITAL SIGNS: Blood pressure 118/79, pulse of 98. HEENT: PERRL. NECK: Supple. CHEST: Reveals decreased breath sounds at the bases. CARDIOVASCULAR: S1 and S2 normal without any S3, S4, or murmurs. Carotid upstrokes normal without bruits. ABDOMEN: Normal bowel sounds without tenderness or organomegaly. EXTREMITIES: Revealed no clubbing, cyanosis, or edema. NEUROLOGIC: Grossly intact. SKIN: Warm and dry. LABORATORY DATA: EKG revealed sinus tachycardia with rate of 104 per minute with PVCs, left atrial enlargement, right axis deviation and evidence of septal infarction. Chest x-ray revealed bilateral vascular congestion and pleural effusions. Chest CT revealed no evidence of pulmonary emboli. Some lymph node enlargement and moderate bilateral pleural effusions. Hemoglobin 18.5, hematocrit 58.4, white count 87168, platelets 358. D-dimer 1.87. Troponin I 1.934. Sodium 137, potassium 3.9, chloride 98, carbon dioxide 27, BUN 12, creatinine 1.01, ALT 61, AST is normal at 23. Alkaline phosphatase 284. BNP 1142.0. Hemoglobin A1c 12.9. IMPRESSION: 1. [id number] myocardial infarction. 2. Probable acute on chronic systolic heart failure. He did have an ejection fraction of 50% to 55% with evidence of diastolic dysfunction on echo in March 2018. Now, he has significantly elevated BNP. 3. History of previous myocardial infarction with stent placement. 4. CABG one year after myocardial infarction. This is apparently a four-vessel bypass in [place]. 5. Hypertension. 6. Diabetes, poorly controlled. 7. Hypercholesterolemia. 8. The patient continues to smoke. 9. History of cerebrovascular accident in March 2018 with fairly unremarkable transesophageal echo. 10. Rule out Coronavirus, although he has not had any fever. 11. Polycythemia, probably due to his smoking, although he certainly could have polycythemia rubra vera. 12. History of bipolar disorder. PLAN: The patient will be given a dose of Lasix this afternoon. Checked with the emergency room and the only thing he was given in the emergency room was aspirin 324 mg and Lovenox 80 mg. Echocardiogram will be performed once COVID has been ruled out. We also discussed that once COVID is ruled out, then consideration should be given to cardiac catheterization, once his breathing improved and once he has been adequately diuresed. Risks of catheterization were discussed including , myocardial infarction, dye reaction, vascular injury, CVA, transfusion, limb loss, renal loss, etc. Also risks of intervention with PTCA and stent placement were discussed including , myocardial infarction, emergent CABG, restenosis, stent thrombosis, vessel perforation, etc. He understands and agrees to proceed. He is on aspirin and Plavix chronically for his stroke and so a drug-eluting stent will be placed if needed. Job ID: [id number] MTDD
[2020-03-20 06:29] LABS: Hemoglobin 16.5 g/dL (14.0-18.0); Mean Corpuscular HGB CONC 33.4 g/dL (32.0-36.0); Mean Corpuscular Hemoglobin 30.7 pg (27.0-31.0); Mean Corpuscular Volume 91.9 fL (78.0-98.0); Mean Platelet Volume 8.3 fL (7.4-10.4); Platelet Count 288 thou/uL (130-400); RBC Distribution Width 12.6 % (11.5-14.5); Red Blood Cell (RBC) Count 5.36 mill/uL (4.70-6.10); White Blood Cell (WBC) Count 10.2 thou/uL (4.8-10.8)
[2020-03-20 06:30] LABS: #Basophils 0.1 thou/uL (0.0-0.2); #Eosinphils 0.1 thou/uL (0.0-0.7); #Lymphocytes 3.2 thou/uL (1.20-3.40); #Monocytes 0.9 thou/uL (0.11-0.59); #Neutrophils 5.9 thou/uL (1.40-6.50); %Basophils 0.9 % (0.0-1.0); %Eosinophils 1.3 % (0.0-10.0); %Lymphocytes 31.5 % (21.0-51.0); %Monocytes 8.7 % (0.0-10.0); %Neutrophils 57.7 % (42.0-75.0)
--- NOTE | 2020-03-20 07:58 | PDOC.FM ---
- Subjective Subjective: This morning, he denies fever, chills, cough, or chest pain. He states he is feeling quite well. He denies any needs. - Objective MAR Reviewed: Yes Vital Signs & Weight: Vital Signs (12 hours) Temp Pulse Resp BP BP Pulse Ox 03/20/20 03:56 96.8 F L 79 19 103/65 94 L 03/19/20 20:08 97.4 F L 92 21 H 99/57 L 95 Weight Weight 77.7 kg I&O: 03/19/20 03/20/20 03/21/20 06:59 06:59 06:59 Intake Total 420 Output Total 5 Balance 415 Result Diagrams: 03/20/20 14:42 03/20/20 14:42 Phys Exam - Physical Examination Constitutional: NAD HEENT: moist MMs Neck: no JVD Respiratory: no wheezing, clear to auscultation bilateral Cardiovascular: RRR, no significant murmur Gastrointestinal: soft, no distention, positive bowel sounds Musculoskeletal: no edema, pulses present Neurological: moves all 4 limbs Psychiatric: A&O x 3 Skin: cap refill <2 seconds Dx/Plan (1) NSTEMI (non-ST elevated myocardial infarction) Code(s): I21.4 - NON-ST ELEVATION (NSTEMI) MYOCARDIAL INFARCTION Status: Acute (2) CAD (coronary artery disease) Code(s): I25.10 - ATHSCL HEART DISEASE OF [place] CORONARY ARTERY W/O ANG PCTRS Status: Chronic (3) DM2 (diabetes mellitus, type 2) Status: Chronic (4) HTN (hypertension) Code(s): I10 - ESSENTIAL (PRIMARY) HYPERTENSION Status: Chronic - Plan Plan: This is a 54 yo male with a pmh of DM2, HTN, CAD NSTEMI type 1 -On therapeutic lovenox, pending covid test for heart Cath -Cardiology consulted, will appreciate recommendations Possible heart failure -CXR and clinical picture suggestive -Pending echo cardiogram Elevated D-Dimer -CTA ruled out PE Tellez virus exposure -Pending swab, precautions in place Hx of CAD -Continue home meds HTN -Pt started on coreg and lisinopril IDDM2 -Continue home lantus -A1c 12.9 -ACHS accuchecks -SSI Hx of Bipolar 2 and WILFRIDO -Currently not on any medications Addendum - Attending - Attending Attestation Date/Time: 03/20/20 1958 I personally evaluated the patient and discussed the management with Dr. Odonnell. I agree with the History, Examination, Assessment and Plan documented above with any addition or exceptions noted below. COVID negative. proceeding with cardiac eval.
[2020-03-20] MEDS ORDERED: Communication Order-Pharmacy FS SCH (08:00)
[2020-03-20] MEDS ORDERED: Empagliflozin 25 MG TAB PO SCH (09:00)
[2020-03-20] MEDS ORDERED: Lisinopril 20 MG TAB PO SCH (09:00)
[2020-03-20] MEDS ORDERED: Rosuvastatin 20 MG TAB PO SCH (09:00)
[2020-03-20] MEDS: Famotidine 20 MG TAB PO SCH ×3 (10:14→20:33)
[2020-03-20] MEDS: Lisinopril 20 MG TAB PO SCH (10:14)
[2020-03-20] MEDS: Nitroglycerin 2% Ointment 1 INCH/1 GM Packet TOP SCH ×3 (10:14→20:34)
[2020-03-20] MEDS: Enoxaparin Sodium 80 MG/0.8 ML SYRINGE SC SCH ×2 (10:15→20:31)
[2020-03-20] MEDS: Aspirin 325 mg Enteric Coated Tablet PO SCH (10:15)
[2020-03-20] MEDS: Carvedilol 3.125 MG TAB PO SCH ×2 (10:15→17:45)
[2020-03-20] MEDS: Clopidogrel Bisulfate 75 MG TAB PO SCH (10:15)
[2020-03-20] MEDS: Insulin Glargine 35 UNITS in Pre-Filled Syringe 1 EACH SC SCH ×2 (10:16→21:45)
[2020-03-20] MEDS: Furosemide 40 MG/4 ML VIAL SLOW IVP SCH (10:16)
[2020-03-20] MEDS: HumaLOG 300 UNITS/3 ML VIAL SC SCH ×3 (10:22→17:46)
[2020-03-20 14:50] LABS: Hemoglobin 17.7 g/dL (14.0-18.0); Platelet Count 328 thou/uL (130-400)
[2020-03-20] MEDS: clonazePAM 0.5 MG TAB PO PRN (20:33)
[2020-03-20] MEDS: Rosuvastatin 20 MG TAB PO SCH (20:33)
[2020-03-21 05:11] LABS: #Basophils 0.1 thou/uL (0.0-0.2); #Eosinphils 0.1 thou/uL (0.0-0.7); #Lymphocytes 2.5 thou/uL (1.20-3.40); #Monocytes 1.1 thou/uL (0.11-0.59); #Neutrophils 7.8 thou/uL (1.40-6.50); %Basophils 0.8 % (0.0-1.0); %Eosinophils 0.9 % (0.0-10.0); %Lymphocytes 21.2 % (21.0-51.0); %Monocytes 9.1 % (0.0-10.0); %Neutrophils 67.9 % (42.0-75.0); Hemoglobin 17.2 g/dL (14.0-18.0); Mean Corpuscular Hemoglobin 28.7 pg (27.0-31.0); Mean Corpuscular Volume 92.4 fL (78.0-98.0); Platelet Count 343 thou/uL (130-400); RBC Distribution Width 12.6 % (11.5-14.5); Red Blood Cell (RBC) Count 6.01 mill/uL (4.70-6.10); White Blood Cell (WBC) Count 11.5 thou/uL (4.8-10.8)
[2020-03-21 05:28] LABS: Anion Gap 16 mmol/L (10-20); BUN (Urea Nitrogen) 15 mg/dL (8.4-25.7); Calc. Creatinine Clearance 103 mL/min (70-130); Calcium 9.5 mg/dL (7.8-10.44); Carbon Dioxide 27 mmol/L (22-29); Chloride 101 mmol/L (98-107); Estimated GFR-MDRD 88; Sodium 140 mmol/L (136-145)
[2020-03-21] MEDS: Carvedilol 3.125 MG TAB PO SCH ×2 (05:30→17:03)
[2020-03-21] MEDS: Famotidine 20 MG TAB PO SCH ×2 (05:30→20:33)
[2020-03-21] MEDS: Aspirin 325 mg Enteric Coated Tablet PO SCH (05:30)
[2020-03-21] MEDS: Clopidogrel Bisulfate 75 MG TAB PO SCH (05:30)
[2020-03-21] MEDS: Lisinopril 20 MG TAB PO SCH (05:31)
[2020-03-21 05:36] LABS: Glucose 37 mg/dL (70-105)
[2020-03-21] MEDS: Dextrose 50% Abboject 50 ML SYRINGE SLOW IVP PRN ×2 (05:41→10:49)
[2020-03-21] MEDS ORDERED: Sodium Chloride 0.9% 1,000 ML IV SCH ×2 (06:00→14:22)
--- NOTE | 2020-03-21 07:29 | PDOC.FM ---
- Subjective Subjective: Patient lying in bed this morning, states he was just told his cardiac cath will be at 1400 today. Complains of a dull ache in the center of his chest, similar to how he has been feeling the past few days. Denies any cough, congestion, SOB, abdominal pain, nausea. Does state he is thirsty and requesting small amount of water. - Objective MAR Reviewed: Yes Vital Signs & Weight: Vital Signs (12 hours) Temp Pulse Resp BP BP Pulse Ox 03/21/20 05:31 129/77 03/21/20 03:48 97.3 F L 75 16 115/71 95 03/20/20 20:13 98.2 F 88 16 111/72 98 Weight Weight 77.7 kg I&O: 03/20/20 03/21/20 03/22/20 06:59 06:59 06:59 Intake Total 420 964 Output Total 5 600 Balance 415 364 Result Diagrams: 03/21/20 04:56 03/21/20 04:56 Phys Exam - Physical Examination Constitutional: NAD HEENT: moist MMs, sclera anicteric Neck: no JVD, supple, full ROM Respiratory: no wheezing, no rhonchi, clear to auscultation bilateral Cardiovascular: RRR, no significant murmur Gastrointestinal: soft, non-tender, no distention, positive bowel sounds Musculoskeletal: no edema, pulses present Neurological: normal sensation, moves all 4 limbs Psychiatric: normal affect, A&O x 3 Skin: no rash, normal turgor Dx/Plan (1) NSTEMI (non-ST elevated myocardial infarction) Code(s): I21.4 - NON-ST ELEVATION (NSTEMI) MYOCARDIAL INFARCTION Status: Acute (2) Elevated d-dimer Code(s): R79.89 - OTHER SPECIFIED ABNORMAL FINDINGS OF BLOOD CHEMISTRY Status : Acute (3) Elevated hemoglobin Code(s): D58.2 - OTHER HEMOGLOBINOPATHIES Status: Acute (4) CAD (coronary artery disease) Code(s): I25.10 - ATHSCL HEART DISEASE OF [place] CORONARY ARTERY W/O ANG PCTRS Status: Chronic Qualifiers: [place] vs. 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 Alvarado -Cardiology consulted--Dr. Alvarado, will appreciate recommendations #Possible heart failure -CXR and clinical picture suggestive -Pending ECHO #Elevated D-Dimer -CTA ruled out PE #Tellez virus exposure -COVID swab NEGATIVE on 03/20 #Hx of CAD -Continue home meds #HTN -Pt started on coreg and lisinopril #IDDM2 -Continue home lantus -A1c 12.9 -ACHS accuchecks -SSI #Hx of Bipolar 2 and WILFRIDO -Currently not on any medications Diet: VTE: Lovenox Code status: DNR-DNI Dispo: Stable, COVID testing resulted negative on 03/20. Cardiology notified, appreciate recs. Anticipate patient to get ECHO & Cardiac Cath today. Addendum - Attending - Attending Attestation Date/Time: 03/21/20 7880 I personally evaluated the patient and discussed the management with Dr. Uribe. I agree with the History, Examination, Assessment and Plan documented above with any addition or exceptions noted below. Echo and cath today. Awaiting cards recommendations. has had recurrent episodes of hypoglycemia. will adjust insulin.
[2020-03-21] MEDS ORDERED: Iopamidol 370 76% 100 ML VIAL ONE (09:34)
[2020-03-21] MEDS: Furosemide 40 MG/4 ML VIAL SLOW IVP SCH (09:55)
[2020-03-21] MEDS: Empagliflozin 25 MG TAB PO SCH (09:55)
[2020-03-21] MEDS: Nitroglycerin 2% Ointment 1 INCH/1 GM Packet TOP SCH (09:55)
[2020-03-21] MEDS ORDERED: Heparin 10,000 UNITS/1 ML VIAL ONE (12:29)
[2020-03-21] MEDS ORDERED: Midazolam HCl 2 mg/2 ml Vial ONE (12:47)
[2020-03-21] MEDS ORDERED: Fentanyl 100 MCG/2 ML VIAL ONE (12:47)
[2020-03-21] MEDS ORDERED: Protamine Sulfate 50 MG/5 ML VIAL ONE (13:24)
[2020-03-21] MEDS ORDERED: Nitroglycerin 0.4 MG TAB (25 Tab Bottle) SL PRN (14:21)
[2020-03-21] MEDS ORDERED: Sodium Chloride 0.9% 200 ML IV PRN (14:21)
[2020-03-21] MEDS ORDERED: Acetaminophen/Codeine 30-300mg Tablet PO PRN ×2 (14:21)
[2020-03-21] MEDS: clonazePAM 0.5 MG TAB PO PRN (14:59)
--- NOTE | 2020-03-21 15:33 | EKG ---
Test Reason : Blood Pressure : / mmHG Vent. Rate : 104 BPM Atrial Rate : 104 BPM P-R Int : 164 ms QRS Dur : 086 ms QT Int : 324 ms P-R-T Axes : 046 135 136 degrees QTc Int : 426 ms Sinus tachycardia with frequent Premature ventricular complexes Left atrial enlargement Right axis deviation Septal infarct , age undetermined Abnormal ECG Confirmed by MINERVA RODRIGUEZ, JOSE JUAN ([id number]), art editor KRISTEL CASTELLANOS ([id number]) on 03/21/2020 3:33:16 PM Referred By: Confirmed By:JOSE JUAN PALMA MD
[2020-03-21] MEDS ORDERED: HumaLOG 300 UNITS/3 ML VIAL SC PRN ×2 (17:36)
[2020-03-21] MEDS: Rosuvastatin 20 MG TAB PO SCH (20:33)
[2020-03-22] MEDS: clonazePAM 0.5 MG TAB PO PRN (00:10)
[2020-03-22 04:51] LABS: #Eosinphils 0.1 thou/uL (0.0-0.7); #Lymphocytes 1.8 thou/uL (1.20-3.40); #Monocytes 0.8 thou/uL (0.11-0.59); #Neutrophils 5.8 thou/uL (1.40-6.50); %Basophils 0.6 % (0.0-1.0); %Eosinophils 1.4 % (0.0-10.0); %Lymphocytes 20.7 % (21.0-51.0); %Monocytes 9.2 % (0.0-10.0); %Neutrophils 68.1 % (42.0-75.0); Mean Corpuscular HGB CONC 32.4 g/dL (32.0-36.0); Mean Corpuscular Hemoglobin 29.8 pg (27.0-31.0); Platelet Count 257 thou/uL (130-400); RBC Distribution Width 12.5 % (11.5-14.5); Red Blood Cell (RBC) Count 5.37 mill/uL (4.70-6.10); White Blood Cell (WBC) Count 8.5 thou/uL (4.8-10.8)
[2020-03-22 05:07] LABS: Anion Gap 11 mmol/L (10-20); BUN (Urea Nitrogen) 13 mg/dL (8.4-25.7); Calc. Creatinine Clearance 101 mL/min (70-130); Calcium 8.6 mg/dL (7.8-10.44); Carbon Dioxide 29 mmol/L (22-29); Chloride 103 mmol/L (98-107); Estimated GFR-MDRD 86; Glucose 93 mg/dL (70-105); Potassium 4.2 mmol/L (3.5-5.1); Sodium 139 mmol/L (136-145)
--- NOTE | 2020-03-22 07:03 | PDOC.FM ---
- Subjective Subjective: Patient had cardiac cath completed yesterday. Will need to be fitted for Life Vest. He continues to have AM episode of hypoglycemia. Has not received any Lantus in past 2 days. Nursing staff and patient both report he has not been eating much, but patient states this morning he is starting to feel hungry and wants to eat breakfast. Says he has not been taking Metformin or Jardiance at home, but says he has been taking Lantus 30 BID regularly. This morning denies any chest pain or discomfort, SOB, nausea, abdominal pain, diarrhea. - Objective MAR Reviewed: Yes Vital Signs & Weight: Vital Signs (12 hours) Temp Pulse Resp BP BP BP Pulse Ox 03/22/20 03:03 97.7 F 74 18 95/60 97 03/21/20 23:57 98.1 F 84 16 99/65 93 L 03/21/20 22:53 99/65 03/21/20 21:15 96/60 03/21/20 20:19 85/58 L 03/21/20 20:00 96 03/21/20 19:34 97.7 F 81 16 90/59 L 96 03/21/20 19:32 96 Weight Weight 77.7 kg I&O: 03/20/20 03/21/20 03/22/20 06:59 06:59 06:59 Intake Total 201 326 7179 Output Total 5 600 Balance 955 167 0624 Result Diagrams: 03/22/20 04:39 03/22/20 04:39 Phys Exam - Physical Examination Constitutional: NAD HEENT: moist MMs, sclera anicteric Neck: no JVD, supple, full ROM Respiratory: no wheezing, clear to auscultation bilateral Cardiovascular: RRR, no significant murmur Gastrointestinal: soft, positive bowel sounds Musculoskeletal: no edema, pulses present Neurological: normal sensation, moves all 4 limbs Psychiatric: normal affect, A&O x 3 Skin: no rash, normal turgor Dx/Plan (1) NSTEMI (non-ST elevated myocardial infarction) Code(s): I21.4 - NON-ST ELEVATION (NSTEMI) MYOCARDIAL INFARCTION Status: Acute (2) Elevated d-dimer Code(s): R79.89 - OTHER SPECIFIED ABNORMAL FINDINGS OF BLOOD CHEMISTRY Status : Acute (3) Elevated hemoglobin Code(s): D58.2 - OTHER HEMOGLOBINOPATHIES Status: Acute (4) CAD (coronary artery disease) Code(s): I25.10 - ATHSCL HEART DISEASE OF [place] CORONARY ARTERY W/O ANG PCTRS Status: Chronic Qualifiers: [place] vs. 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 Alvarado, will appreciate recommendations -Cath on 03/21, official report shows patient has EF of 15% with LV severe global hypokinesis, 3 of 4 grafted vessels still patent (see paper chart for more details) -records obtained from 4V CABG surgery at [facility] are in paper chart -ECHO on 03/21: EF 15-20%, severe decreased left ventricular function, moderate mitral regurgitation, mild tricuspid regurgitation, sclerotic aortic valve -recommends Life Vest for patient, nursing to arrange for this #Possible heart failure -CXR and clinical picture suggestive -ECHO results as above -started on Lasix 40 mg PO daily #Elevated D-Dimer -CTA ruled out PE #Tellez virus exposure -COVID swab NEGATIVE on 03/20 #Hx of CAD -Continue home meds #HTN -Pt started on coreg and lisinopril #IDDM2 -Home lantus held on 03/21 d/t hypoglycemic episodes, appears patient has not been taking any home meds besides Lisinopril -will need to further adjust today, patient currently just receiving home Jardiance and correctional SSI -A1c 12.9% -[facility] accuchecks -SSI #Hx of Bipolar 2 and WILFRIDO -Currently not on any medications Diet: HH VTE: Lovenox Code status: DNR-DNI Dispo: Stable, COVID testing resulted negative on 03/20. Cardiology consulted, appreciate recs. Continue to adjust insulin regimen in light of recent hypoglycemic episodes. Patient will need to get fitted for Life Vest prior to discharge. Addendum - Attending - Attending Attestation Date/Time: 03/22/20 2815 I personally evaluated the patient and discussed the management with Dr. Uribe. I agree with the History, Examination, Assessment and Plan documented above with any addition or exceptions noted below. Life vest today. d/c home afterwards. stressed compliance with medication and nicotine cessation. Decreased lisinopril to 10 mg. Start spirnolactone.
[2020-03-22] MEDS ORDERED: Furosemide 40 MG TAB PO SCH (07:30)
[2020-03-22] MEDS: Famotidine 20 MG TAB PO SCH (08:05)
[2020-03-22] MEDS: Clopidogrel Bisulfate 75 MG TAB PO SCH (08:05)
[2020-03-22] MEDS: Empagliflozin 25 MG TAB PO SCH (08:06)
[2020-03-22] MEDS: Carvedilol 3.125 MG TAB PO SCH (08:06)
[2020-03-22] MEDS: Aspirin 325 mg Enteric Coated Tablet PO SCH (08:06)
[2020-03-22] MEDS: Lisinopril 20 MG TAB PO SCH (08:21)
[2020-03-22] MEDS ORDERED: Lisinopril 10 MG TAB PO SCH (09:45)
[2020-03-22] MEDS ORDERED: metFORMIN 500 MG TAB PO SCH (10:45)
--- NOTE | 2020-03-22 10:59 | PDOC.CPN ---
- Subjective Date: 03/22/20 Time: 11:06 Interval history: The pt seen and examined. No overnight events. No cardiac complaints. - Objective Allergies/Adverse Reactions: Allergies Allergy/AdvReac Type Severity Reaction Status Date / Time No Known Allergies Allergy Unverified 04/10/18 11:18 Visit Medications: Current Medications Acetaminophen (Tylenol) 650 mg PO Q6H PRN PRN Reason: Headache/Fever or Mild Pain Acetaminophen/Codeine Phosphate (Tylenol #3) 1 tab PO Q4H PRN PRN Reason: Mild Pain (1-3) Acetaminophen/Codeine Phosphate (Tylenol #3) 2 tab PO Q4H PRN PRN Reason: Moderate Pain (4-6) Aspirin (Ecotrin) 325 mg PO DAILY [facility] Last Admin: 03/22/20 08:06 Dose: 325 mg Carvedilol (Coreg) 3.125 mg PO BID-[facility] Last Admin: 03/22/20 08:06 Dose: 3.125 mg Clonazepam (Clonazepam) 0.5 mg PO BIDPRN PRN PRN Reason: Anxiety Last Admin: 03/22/20 00:10 Dose: 0.5 mg Clopidogrel Bisulfate (Plavix) 75 mg PO DAILY [facility] Last Admin: 03/22/20 08:05 Dose: 75 mg Dextrose/Water (Dextrose 50%) 25 gm SLOW IVP PRN PRN PRN Reason: Hypoglycemia Last Admin: 03/21/20 10:49 Dose: 25 gm Famotidine (Pepcid) 20 mg PO BID [facility] Last Admin: 03/22/20 08:05 Dose: 20 mg Furosemide (Lasix) 40 mg PO DAILY-[facility] Glucagon (Glucagon) 1 mg IM PRN PRN PRN Reason: Hypoglycemia Dextrose/Water (D5w) 1,000 mls @ 0 mls/hr IV .Q0M PRN PRN Reason: Hypoglycemia Sodium Chloride (Normal Saline 0.9%) 200 mls @ 0 mls/hr IV ONE PRN PRN Reason: SBP < 90 Stop: 03/22/20 14:22 Insulin Human Lispro (Humalog) 0 units SC .MILD SLIDING SCALE PRN PRN Reason: Mild Correctional Scale Insulin Human Lispro (Humalog) 0 units SC .BEDTIME SLIDING SC PRN PRN Reason: Bedtime Correctional Scale Lisinopril (Zestril) 10 mg PO DAILY [facility] Lisinopril (Zestril) 10 mg PO NOW [facility] Stop: 03/22/20 12:00 Metformin HCl (Glucophage) 250 mg PO BID-[facility] Metformin HCl (Glucophage) 250 mg PO NOW [facility] Stop: 03/22/20 12:00 Nitroglycerin (Nitrostat) 0.4 mg SL Q5MIN PRN PRN Reason: Chest Pain Ondansetron HCl (Zofran Odt) 4 mg PO Q6H PRN PRN Reason: Nausea/Vomiting Rosuvastatin Calcium (Crestor) 40 mg PO [facility] Last Admin: 03/21/20 20:33 Dose: 40 mg Spironolactone (Aldactone) 25 mg PO QAM-[facility] Vital Signs & Weight: Vital Signs Temp Pulse Resp BP BP Pulse Ox 03/22/20 08:00 97.8 F 80 14 97/62 92 L 03/22/20 03:03 97.7 F 74 18 95/60 97 03/21/20 23:57 98.1 F 84 16 99/65 93 L Weight 171 lb 4.787 oz - Physical Exam General: alert & oriented x3 HEENT: mucus membranes moist Neck: supple neck Cardiac: regular rate and rhythm, S1/S2 Lungs: clear to auscultation, decreased breath sounds Neuro: cranial nerve 2-12 intact Abdomen: unremarkable Extremities: no cyanosis Skin: clear Musculoskeletal: normal range of motion - Labs Result Diagrams: 03/22/20 04:39 03/22/20 04:39 Troponin/CKMB CK-MB (CK-2) 2.4 ng/mL (0-6.6) 03/19/20 10:21 Troponin I 1.549 ng/mL (< 0.028) H* 03/19/20 16:37 - Telemetry Sinus rhythms and dysrhythmias: sinus rhythm - Assessment/Plan Assessment/Plan: 1. Acute on chronic Systolic HF - stable with RA; on Coreg, Lisinopril, and Lasix 40mg qd. 2. Ischemic CMY - the pt agrees to d/c home with LifeVest although his code status is DNAR and does not want AICD placement in future. 3. CAD with hx of CABG x 4 in 2013 and stent placement in 09/2013 - s/p [facility] with severe 3V CAD on 03/21/2020 - medical tx only; on Coreg, Lisinopril, ASA, Plavix, and Crestor which was increased from 20mg to 40mg for LDL > 110 4. HTN - stable 5. DM type 2 - HgbA1c 12.9 6. HLD - Crestor was increased from 20mg to 40mg for LDL > 110 7. Hx of CVA 8. Anxiety - per the pt, he may not be able to stop smoking due to Anxiety because "nobody prescribed Xanax for anxiety." 9. Current smoker - strongly recommend start smoking cessation 10. Hx of Bipolar 2 and WILFRIDO MAR reviewed * From Cardiac standpoint, the pt is stable to d/c home once he receives LifeVest. * The pt will f/u with Dr Alvarado's office in 2 wks. Pt. seen and eval. by me. His only c/o is anxiety. He denies chest pain or SOB. Chest clear. RRR. Diffuse 3 V CAD. CMY. He will be medically treated and if the EF does not improve then he will be a candidate for an AICD. In the future if he stops smoking and gets the DM under better control then he may become a candidate for an LVAD as a bridge to transplant. He wants to go home. Ambulating in the halls. Okay to d/c. F/U with Dr. Alvarado as above.
[2020-03-22 11:26] VITALS: BP 125/70; TEMP 97.9
--- NOTE | 2020-03-23 06:09 | DIS ---
DATE OF ADMISSION: 03/19/2020 DATE OF DISCHARGE: 03/22/2020 RESIDENT: Kelly Uribe DO ADMITTING ATTENDING: Henri Claros MD DISCHARGE ATTENDING: Henri Claros MD CONSULTS: 1. Cardiology, Dr. Alvarado. 2. Cardiac Rehab. 3. Case Management. 4. Physical Therapy. 5. Occupational Therapy. PROCEDURES: 1. Chest x-ray on March 19, 2020: Postop midline sternotomy. Cardiomegaly with bilateral vascular congestion, mild interstitial changes, and pleural effusions concerning for developing congestive heart failure. No confluent lobar pneumonia. 2. Chest CTA on March 19, 2020: No convincing CT evidence for acute pulmonary embolism. Moderate bilateral pleural effusions as well as some scattered linear parenchymal changes and some partial subpleural atelectatic changes. Some minimally enlarged and borderline enlarged mediastinal lymph nodes showing some increase in size from prior study in April 2019. These may be reactive nodes. Consider short-term followup at some point depending on clinical concern. 3. Echocardiogram on March 21, 2020: Overall left ventricular function is severely depressed. Ejection fraction is visually estimated at 15% to 20%. Left atrium is mildly dilated. Moderate mitral regurgitation is present. Aortic valve is sclerotic. Mild tricuspid regurgitation. 4. Cardiac cath on March 21, 2020, with Dr. Omkar Alvarado: Cath reveals ejection fraction of 15% to 20%. Left ventricle with severe global hypokinesis. Three of the four grafts from prior coronary artery bypass grafting surgery are patent. LAD with 100% blockage. See scanned reports for full details. PRIMARY DIAGNOSIS: Non-ST segment elevation myocardial infarction type 1, status post cardiac cath on March 21, 2020. SECONDARY DIAGNOSES: 1. New onset congestive heart failure. 2. Elevated D-dimer. 3. Coronavirus exposure, COVID negative on March 20. 4. Coronary artery disease. 5. Hypertension. 6. Insulin-dependent diabetes mellitus. 7. Bipolar II. 8. Generalized anxiety disorder. DISCHARGE MEDICATIONS: 1. Aspirin 325 mg p.o. daily. 2. Carvedilol 3.125 mg p.o. b.i.d. 3. Furosemide 40 mg p.o. daily. 4. Lisinopril 10 mg p.o. daily. 5. Metformin XR 500 mg p.o. daily. 6. Spironolactone 25 mg p.o. daily. 7. Xanax 0.5 mg p.o. t.i.d. 8. Insulin glargine 35 units subcu b.i.d. 9. Humalog 10 units subcu before meals. 10. Quetiapine 300 mg p.o. daily. 11. Nitroglycerin 0.4 mg sublingual q.5 minutes p.r.n. for chest pain. 12. Rosuvastatin 20 mg p.o. daily. 13. Plavix 75 mg p.o. daily. DISCONTINUED MEDICATIONS: 1. Jardiance 25 mg p.o. daily. 2. Metformin 1000 mg p.o. b.i.d. 3. Lisinopril 40 mg p.o. daily. HISTORY OF PRESENT ILLNESS/HOSPITAL COURSE: The patient is a 54-year-old male with extensive past CAD history with a 4-vessel CABG last year, who presents with intermittent chest pain, shortness of breath, and weakness. The patient reported that he had been very short of breath for the past several days. States he had difficulty walking to the bathroom from the living room, which is relatively short distance per the patient. The patient has had chest pain and intermittent shortness of breath on and off for one year, worsened in the past 2 to 3 days. The patient feels weak all over, which he attributes to history of strokes. Says he "feels drunk" like his mentation is foggy and he does not have clear thinking. Chest pain gets better over time and with rest, worsens with activity. The patient states he has been taking most of his home medications, but admits to not having taken depression and anxiety medications recently. Has not had much of an appetite, says he has been drinking about 2 L of fluid, mostly Diet Coke, a day. Blood sugars in a.m. have been 150 to 180s. States he takes 30 units of Lantus b.i.d. Has not been checking home blood pressure. The patient feels like he has gained a few pounds over the last several days. Over the last 2 days, he has developed lower extremity swelling, which is a new symptom for him. He denies any palpitations or orthopnea. Denies any chest pain currently. In the emergency department, the patient was given 324 mg of aspirin and 80 mg of Lovenox. CTA of the chest was obtained, which was negative for pulmonary embolism. Chest x-ray was suggestive of new onset congestive heart failure with bilateral pleural effusions seen. The patient was admitted to inpatient on the telemetry unit for further workup of a suspected NSTEMI. Upon arrival to the floor, the patient reported additional history that his mother is currently in the hospital being evaluated for COVID-19. At this point, the patient was placed on isolation precautions, and a COVID swab was obtained. This swab later resulted as negative on March 20, 2020. Initially, the patient's troponin was 1.934, at this point Cardiology, Dr. Alvarado was consulted, but did not plan for any intervention due to being on COVID precautions. Once COVID precautions were discontinued, Dr. Alvarado planned to take the patient back to cardiac cath. The patient's initial BNP was elevated at 1142, this was consistent with chest x-ray findings suggestive of new onset congestive heart failure. The patient was started on Lasix 40 IV daily, an echocardiogram was obtained, which showed an ejection fraction of 15% to 20%. On March 21, 2020, the patient was taken back for cardiac cath by Dr. Alvarado. Cath results were consistent with findings of an ejection fraction of 15% with diffuse three-vessel CAD. Of the four grafts from the patient's CABG, three are still patent. The patient has opted for medical treatment with LifeVest placement at this time. He was fitted for a LifeVest on the morning of March 22, 2020. He may eventually be a candidate for AICD. 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 Cardiology also suggested in the future if he stops smoking and get his diabetes under better control, then he may become a candidate for an LVAD as a bridge to transplant. The patient will need followup with Dr. Alvarado's office in 2 weeks. Upon admission, an A1c was checked, which was 12.9%. The patient stated that he had been taking Lantus 30 units b.i.d. at home, but had discontinued taking his metformin and Jardiance. He discontinued metformin secondary to abdominal pain and diarrhea. He discontinued his Jardiance due to cost. 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 This was thought to be due to the patient not being able to eat and when able to eat, he had a lack of appetite. Once the patient resumed eating, his blood sugars were in the 150s. It was discussed with the patient the importance of adhering to his diabetes medications. He was discharged on metformin extended release as well as told to monitor his blood sugars and to resume his Lantus dosing. He will need close followup in 3 to 5 days with his PCP at [facility]. DISPOSITION: Stable. DISCHARGE INSTRUCTIONS: 1. Location: Home. 2. Diet: Heart healthy. 3. Activity: As tolerated. 4. Followup: Follow up with Dr. Alvarado in 2 to 3 weeks. Follow up with [facility] in 3 to 5 days. Follow up with outpatient cardiac rehab as directed. 5. The patient was given LifeVest upon discharge. Job ID: [id number]
[2020-03-23] MEDS ORDERED: metFORMIN 500 MG TAB PO SCH (08:00)
[2020-03-23] MEDS ORDERED: Spironolactone 25 MG TAB PO SCH (08:00)
[2020-03-23] MEDS ORDERED: Lisinopril 10 MG TAB PO SCH (09:00)
[2020-03-23] MEDS ORDERED: Lisinopril 20 MG TAB PO SCH (09:00)
== END 2020-03-22 13:32 | disposition home or self-care (01) | DRG 280 ==
LOC: ERS 10:08 → 2NO 11:25 → 2SW 12:51
PROVIDERS: ADMIT Family Medicine; ATTEND Family Medicine
PROC: 8E0ZXY6 Isolation (ICD-10-PCS; 2020-03-19)
PROC: 4A023N7 Measurement of Cardiac Sampling and Pressure, Left Heart, Percutaneous Approach (ICD-10-PCS; principal; 2020-03-21)
PROC: B2111ZZ Fluoroscopy of Multiple Coronary Arteries using Low Osmolar Contrast (ICD-10-PCS; 2020-03-21)
PROC: B2131ZZ Fluoroscopy of Multiple Coronary Artery Bypass Grafts using Low Osmolar Contrast (ICD-10-PCS; 2020-03-21)
PROC: B2151ZZ Fluoroscopy of Left Heart using Low Osmolar Contrast (ICD-10-PCS; 2020-03-21)
PROC: B2181ZZ Fluoroscopy of Left Internal Mammary Bypass Graft using Low Osmolar Contrast (ICD-10-PCS; 2020-03-21)
PROC: B2171ZZ Fluoroscopy of Right Internal Mammary Bypass Graft using Low Osmolar Contrast (ICD-10-PCS; 2020-03-21)
DX: I21.4 Non-ST elevation (NSTEMI) myocardial infarction (principal); I50.23 Acute on chronic systolic (congestive) heart failure; Z20.828 Contact with and (suspected) exposure to other viral communicable diseases; Z66 Do not resuscitate; F31.9 Bipolar disorder, unspecified; F41.1 Generalized anxiety disorder; I25.10 Atherosclerotic heart disease of native coronary artery without angina pectoris; E11.65 Type 2 diabetes mellitus with hyperglycemia; E78.5 Hyperlipidemia, unspecified; R79.89 Other specified abnormal findings of blood chemistry; E78.00 Pure hypercholesterolemia, unspecified; F17.290 Nicotine dependence, other tobacco product, uncomplicated; D75.1 Secondary polycythemia; I11.0 Hypertensive heart disease with heart failure; I25.5 Ischemic cardiomyopathy; E11.649 Type 2 diabetes mellitus with hypoglycemia without coma; Z95.1 Presence of aortocoronary bypass graft; Z86.73 Personal history of transient ischemic attack (TIA), and cerebral infarction without residual deficits; Z79.899 Other long term (current) drug therapy; Z79.02 Long term (current) use of antithrombotics/antiplatelets; Z79.4 Long term (current) use of insulin; Z95.5 Presence of coronary angioplasty implant and graft; I25.2 Old myocardial infarction
CPT/HCPCS: 36415; 36416; 71045; 71275; 80048; 80053; 80061; 82550; 82553; 83036; 83690; 83880; 84484; 85025; 85379; 85610; 85730; 87635; 93005; 93306; 93459; 94760; 96372; 99152; C1769; J1644; J1650; J1815; J1940; J2250; J2720; J3010; Q9967; U0002

== ENCOUNTER 2021-01-06 13:20 | Outpatient (CLI) | payer OTHER ==
--- NOTE | 2021-01-06 13:52 | RAD ---
XR Shoulder Rt 3 View STANDARD HISTORY: Acute pain of the right shoulder FINDINGS: No fracture or dislocation is identified. There are degenerative changes in the acromial clavicular j oint. A small soft tissue calcification in the rotator cuff is suggestive of calcific tendinosis.
== END 2021-01-06 13:21 | disposition home or self-care (01) ==
LOC: BICRAD 13:20
PROVIDERS: ATTEND General Practice
DX: M25.511 Pain in right shoulder (principal)